=== PATIENT | female | born 1995 | race Caucasian/White ===

== ENCOUNTER 2017-03-25 22:38 | Emergency (ER) | payer OTHER ==
[2017-03-25 22:55] VITALS: BP 138/83; PULSE 72; TEMP 97.4; BMI 35.4
[2017-03-26 02:21] LABS: BASOPHIL 0.3 % (0-2.0); EOSINOPHIL 1.3 % (0-4.5); MCH 28.9 pg (25.7-33.7); NEUTROPHILS 55.2 % (42.8-82.8); PLATELET COUNT 222 K/MM3 (134-434); RDW 13.2 % (11.6-15.6); WHITE BLOOD COUNT 9.1 K/mm3 (4.0-10.0)
[2017-03-26 02:23] LABS: URINE APPEARANCE CLOUDY; URINE BILIRUBIN NEGATIVE (NEGATIVE); URINE BLOOD 2+ (NEGATIVE); URINE COLOR DKYELLOW; URINE GLUCOSE (UA) NEGATIVE (NEGATIVE); URINE KETONE 1+ (NEGATIVE); URINE NITRITE NEGATIVE (NEGATIVE)
[2017-03-26 02:24] LABS: URINE PROTEIN 1+ (NEGATIVE)
[2017-03-26 02:27] LABS: URINE MUCUS RARE; URINE RBC 128; URINE WBC 74
--- NOTE | 2017-03-26 02:28 | PDOC ---
History of Present Illness - General Chief Complaint: Shortness of Breath Stated Complaint: CHEST PAIN Time Seen by Provider: 03/26/17 01:26 Past History - Past Medical History Allergies/Adverse Reactions: Allergies Allergy/AdvReac Type Severity Reaction Status Date / Time shellfish derived Allergy Severe anaphylaxis Verified 02/14/15 17:18 cats Allergy Mild itchy eyes Uncoded 02/14/15 17:18 dogs Allergy Mild itchy eyes Uncoded 02/14/15 17:18 dust Allergy Mild itchy eyes Uncoded 02/14/15 17:18 Home Medications: Ambulatory Orders Levothyroxine [Synthroid -] 150 mcg PO DAILY 09/04/13 Insulin Pump Syringe, 3 ml 0 units SCJ PRN 02/03/15 Metformin HCl 500 mg PO HS 03/26/17 Norethindrone-E.estradiol-Iron [Lo Loestrin Fe 1-10 Tablet] 1 tab PO DAILY 03/26 Asthma: No Cancer: No Cardiac Disorders: Yes COPD: No Diabetes: Yes HTN: No Seizures: No Thyroid Disease: Yes (hypothyroid) - Surgical History Cardiac Surgery: Yes (ablation A fib) - Immunization History Immunization Up to Date: Yes - Suicide/Smoking/Psychosocial Hx Smoking Status: No Smoking History: Never smoked Have you smoked in the past 12 months: No Number of Cigarettes Smoked Daily: 0 Information on smoking cessation initiated: No Hx Alcohol Use: No Drug/Substance Use Hx: No Substance Use Type: None Hx Substance Use Treatment: No *Physical Exam - Vital Signs Last Vital Signs Temp Pulse Resp BP Pulse Ox 97.4 F L 72 22 138/83 100 03/25/17 22:46 03/25/17 22:46 03/25/17 22:46 03/25/17 22:46 03/25/17 22:46 ED Treatment Course - LABORATORY CBC & Chemistry Diagram: 03/26/17 02:16 03/26/17 02:16 - ADDITIONAL ORDERS Additional order review: Laboratory Results 03/26/17 02:16 Urine Color Dkyellow Urine Appearance Cloudy Urine pH 6.0 Ur Specific [place] 1.029 Urine Protein 1+ H Urine Glucose (UA) Negative Urine Ketones 1+ H Urine Blood 2+ H Urine Nitrite Negative Urine Bilirubin Negative Urine Urobilinogen 2.0 H 03/26/17 02:16 RBC 4.69 MCV 85.0 MCHC 34.0 RDW 13.2 MPV 11.0 Neutrophils % 55.2 Lymphocytes % 36.8 Monocytes % 6.4 Eosinophils % 1.3 Basophils % 0.3 *DC/Admit/Observation/Transfer - Referrals Referrals: Reymundo Welsh MD [Primary Care Provider] - - Patient Instructions - Post Discharge Activity
[2017-03-26 02:44] LABS: ALBUMIN 3.3 g/dl (3.4-5.0); ALK PHOS 65 U/L (45-117); ANION GAP 7 (8-16); BILIRUBIN,TOTAL 0.1 mg/dL (0.2-1.0); CALCIUM 8.1 mg/dL (8.5-10.1); CO2 27 mmol/L (21-32); CREATININE 0.7 mg/dL (0.55-1.02); GLUCOSE,RANDOM 120 mg/dL (74-106); SGOT/AST 13 U/L (15-37); SGPT/ALT 20 U/L (12-78); TOT PROT 6.5 g/dl (6.4-8.2)
[2017-03-26 03:04] LABS: CPK 96 IU/L (26-192); TROPONIN I < 0.02 ng/ml (0.00-0.05)
[2017-03-26] MEDS ORDERED: POTASSIUM CHLORIDE TABS 20 MEQ TABLET.ER (FP) PO ONE ×2 (03:18→03:28)
--- NOTE | 2017-03-26 04:15 | PDOC ---
History of Present Illness - General Chief Complaint: Shortness of Breath Stated Complaint: CHEST PAIN Time Seen by Provider: 03/26/17 01:26 History Source: Patient Exam Limitations: No Limitations - History of Present Illness Initial Comments: 03/26/17 04:14 21F with DM and hypothyroidism presents with inspiratory chest pain and shortness of breath since yesterday morning (thursday am) Reports a 3h road trip 3 days ago, and 1 episode of vomiting on Thursday night. Is on insulin pump and Metformin but stopped metformin the last 3 days due to low blood sugar upon waking up (30-40's) 03/26/17 06:41 Past History - Past Medical History Allergies/Adverse Reactions: Allergies Allergy/AdvReac Type Severity Reaction Status Date / Time shellfish derived Allergy Severe anaphylaxis Verified 02/14/15 17:18 cats Allergy Mild itchy eyes Uncoded 02/14/15 17:18 dogs Allergy Mild itchy eyes Uncoded 02/14/15 17:18 dust Allergy Mild itchy eyes Uncoded 02/14/15 17:18 Home Medications: Ambulatory Orders Levothyroxine [Synthroid -] 150 mcg PO DAILY 09/04/13 Insulin Pump Syringe, 3 ml 0 units SCJ PRN 02/03/15 Metformin HCl 500 mg PO HS 03/26/17 Norethindrone-E.estradiol-Iron [Lo Loestrin Fe 1-10 Tablet] 1 tab PO DAILY 03/26 Asthma: No Cancer: No Cardiac Disorders: Yes COPD: No Diabetes: Yes HTN: No Seizures: No Thyroid Disease: Yes (hypothyroid) - Surgical History Cardiac Surgery: Yes (ablation A fib) - Immunization History Immunization Up to Date: Yes - Suicide/Smoking/Psychosocial Hx Smoking Status: No Smoking History: Never smoked Have you smoked in the past 12 months: No Number of Cigarettes Smoked Daily: 0 Information on smoking cessation initiated: No Hx Alcohol Use: No Drug/Substance Use Hx: No Substance Use Type: None Hx Substance Use Treatment: No Review of Systems - Review of Systems Constitutional: No: Symptoms Reported HEENTM: No: Symptoms Reported Respiratory: Yes: See HPI Cardiac (ROS): No: Symptoms Reported ABD/GI: No: Symptoms Reported : No: Symptoms Reported Musculoskeletal: No: Symptoms Reported Integumentary: No: Symptoms Reported Neurological: No: Symptoms reported All Other Systems: Reviewed and Negative *Physical Exam - Vital Signs Last Vital Signs Temp Pulse Resp BP Pulse Ox 97.4 F L 72 22 138/83 100 03/25/17 22:46 03/25/17 22:46 03/25/17 22:46 03/25/17 22:46 03/25/17 22:46 - Physical Exam General Appearance: Yes: Nourished, Appropriately Dressed. No: Apparent Distress HEENT: positive: EOMI, MUKESH, Normal ENT Inspection Neck: positive: Trachea midline, Normal Thyroid. negative: Tender Respiratory/Chest: positive: Lungs Clear, Normal Breath Sounds. negative: Chest Tender, Respiratory Distress Cardiovascular: positive: Regular Rhythm, Regular Rate, S1, S2 Vascular Pulses: Dorsalis-Pedis (R): 2+, Doralis-Pedis (L): 2+ Gastrointestinal/Abdominal: positive: Normal Bowel Sounds, Flat, Soft. negative : Tender ED Treatment Course - LABORATORY CBC & Chemistry Diagram: 03/26/17 02:16 03/26/17 02:16 - ADDITIONAL ORDERS Additional order review: Laboratory Results 03/26/17 03/26/17 03/26/17 02:16 02:16 02:16 Sodium Potassium Chloride Carbon Dioxide Anion Gap BUN Creatinine Creat Clearance w eGFR Random Glucose Calcium Total Bilirubin AST ALT Alkaline Phosphatase Creatine Kinase 96 Troponin I < 0.02 Total Protein Albumin TSH 6.12 H D Urine Color Urine Appearance Urine pH Ur Specific [place] Urine Protein Urine Glucose (UA) Urine Ketones Urine Blood Urine Nitrite Urine Bilirubin Urine Urobilinogen Urine WBC (Auto) Urine RBC (Auto) Ur Epithelial Cells Urine Mucus Urine HCG, Qual Negative 03/26/17 03/26/17 02:16 02:16 Sodium 139 Potassium 3.4 L Chloride 105 Carbon Dioxide 27 Anion Gap 7 L BUN 8 Creatinine 0.7 Creat Clearance w eGFR > 60 Random Glucose 120 H Calcium 8.1 L Total Bilirubin 0.1 L D AST 13 L D ALT 20 Alkaline Phosphatase 65 D Creatine Kinase Troponin I Total Protein 6.5 Albumin 3.3 L TSH Urine Color Dkyellow Urine Appearance Cloudy Urine pH 6.0 Ur Specific [place] 1.029 Urine Protein 1+ H Urine Glucose (UA) Negative Urine Ketones 1+ H Urine Blood 2+ H Urine Nitrite Negative Urine Bilirubin Negative Urine Urobilinogen 2.0 H Urine WBC (Auto) 74 Urine RBC (Auto) 128 Ur Epithelial Cells Moderate Urine Mucus Rare Urine HCG, Qual 03/26/17 02:16 RBC 4.69 MCV 85.0 MCHC 34.0 RDW 13.2 MPV 11.0 Neutrophils % 55.2 Lymphocytes % 36.8 Monocytes % 6.4 Eosinophils % 1.3 Basophils % 0.3 - RADIOLOGY Radiology Studies Ordered: Category Date Time Status CHEST CTA [CT] Stat CT Scan 03/26/17 03:13 Ordered CHEST PA & LAT [RAD] Stat Radiology 03/26/17 02:28 Ordered - Medications Given in the ED: ED Medications Discontinued Medications Generic Name Dose Route Start Last Admin Trade Name Freq PRN Reason Stop Dose Admin Potassium Chloride 20 meq 03/26/17 03:18 03/26/17 03:30 K-Dur - PO 03/26/17 03:19 20 meq ONCE ONE Administration Medical Decision Making - Medical Decision Making 03/28/17 06:28 21F with atypical chest pain. Concerns for PE, Normal kidney function CTA chest ordered, Negative Negative cardiac enzymes Patient d/c with recommendation to follow up with PCp/reed or wind instrument repairer *DC/Admit/Observation/Transfer Diagnosis at time of Disposition: Atypical chest pain - Discharge Dispostion Disposition: HOME Admit: No - Referrals Referrals: Reymundo Welsh MD [Primary Care Provider] - - Patient Instructions Printed Discharge Instructions: DI for Costochondritis Additional Instructions: Follow up with your primary doctor or reed or wind instrument repairer today or tomorrow. Come back for any new, worsening or concerning symptoms of shortness of breath and chest pain - Post Discharge Activity
[2017-03-26] MEDS ORDERED: IBUPROFEN 600 MG TABLET (FP) PO ONE ×2 (06:41→06:48)
--- NOTE | 2017-03-26 10:53 | EKG ---
Test Reason : Blood Pressure : / mmHG Vent. Rate : 070 BPM Atrial Rate : 070 BPM P-R Int : 152 ms QRS Dur : 072 ms QT Int : 378 ms P-R-T Axes : 059 057 046 degrees QTc Int : 408 ms POOR DATA QUALITY, INTERPRETATION MAY BE ADVERSELY AFFECTED NORMAL SINUS RHYTHM WITH SINUS ARRHYTHMIA NONSPECIFIC T WAVE ABNORMALITY ABNORMAL ECG WHEN COMPARED WITH ECG OF 25-MAR-2017 22:45, NO SIGNIFICANT CHANGE WAS FOUND Confirmed by BHAKTI MARROQUIN MD ([id number]) on 03/26/2017 10:52:55 AM Referred By: Confirmed By:BHAKTI MARROQUIN MD
[2017-03-26 14:40] LABS: URINE LEUK ESTERASE 1+ (NEGATIVE)
--- NOTE | 2017-04-01 12:15 | EKG ---
Test Reason : Blood Pressure : / mmHG Vent. Rate : 074 BPM Atrial Rate : 074 BPM P-R Int : 140 ms QRS Dur : 078 ms QT Int : 400 ms P-R-T Axes : 056 039 024 degrees QTc Int : 444 ms NORMAL SINUS RHYTHM NORMAL ECG WHEN COMPARED WITH ECG OF 19-AUG-2012 19:33, NO SIGNIFICANT CHANGE WAS FOUND Confirmed by ANGEL LUIS SANZ MD ([id number]) on 04/01/2017 12:15:10 PM Referred By: Confirmed By:ANGEL LUIS SANZ MD
== END 2017-03-26 07:16 | disposition home or self-care (01) ==
LOC: JER 22:38
DX: R07.89 Other chest pain (principal); E10.8 Type 1 diabetes mellitus with unspecified complications; Z79.4 Long term (current) use of insulin; Z96.41 Presence of insulin pump (external) (internal); E03.9 Hypothyroidism, unspecified; E87.6 Hypokalemia
CPT/HCPCS: 36415; 71275-TC; 80053; 81003; 81015; 82550; 84443; 84484; 84703; 85025; 93005; 93010; 99283-25

== ENCOUNTER 2017-06-17 21:46 | Emergency (ER) | payer OTHER ==
[2017-06-17] MEDS ORDERED: morphine CARPU-JECT 2 MG/1 ML DISP.SYRIN IVPUSH ONE (21:58)
[2017-06-17 21:59] VITALS: BMI 35.3
--- NOTE | 2017-06-17 22:04 | PDOC ---
Rapid Medical Evaluation Time Seen by Provider: 06/17/17 21:52 Medical Evaluation: Allergies Allergy/AdvReac Type Severity Reaction Status Date / Time shellfish derived Allergy Severe anaphylaxis Verified 02/14/15 17:18 cats Allergy Mild itchy eyes Uncoded 02/14/15 17:18 dogs Allergy Mild itchy eyes Uncoded 02/14/15 17:18 dust Allergy Mild itchy eyes Uncoded 02/14/15 17:18 06/17/17 21:52 I have performed a brief in-person evaluation of this patient. The patient presents with a chief complaint of: sudden onset severe L pelvic pain x 1 hr, hx DM, no vaginal bleeding, denies , 06/07 LMP, , last sexual activity one week ago, last STD test march was negative, mom has history of fibroids, Dr. Welsh told her today that she has sign of PCOS Pertinent physical exam findings: patient in distress s/t pain I have ordered the following: CBC, CMP, serum preg, TVUS, T&S, UA, UCx, morphine The patient will proceed to the ED for further evaluation. Discharge Disposition - Diagnosis Pelvic pain - Referrals - Patient Instructions - Post Discharge Activity
--- NOTE | 2017-06-17 22:17 | PDOC ---
History of Present Illness - General Chief Complaint: Pain, Acute Stated Complaint: PAIN, ACUTE Time Seen by Provider: 06/17/17 21:52 - History of Present Illness Initial Comments: 21 year old with PMH of DMTI (insulin pump in place) and caesarian section x1 presenting with sudden onset severe L pelvic pain x 1 hr. Only complains of LLQ pain and denies fevers, chills, SOB, nausea, vomiting, diarrhea, chest pain , vaginal bleeding, recent . Her LMP was 06/07. Her last sexual activity was one week prior and her last STD test in March was negative. She was sent from Dr. Welsh's (PCP) office today because of concern for PCOS. 06/17/17 22:18 Past History - Past Medical History Allergies/Adverse Reactions: Allergies Allergy/AdvReac Type Severity Reaction Status Date / Time shellfish derived Allergy Severe anaphylaxis Verified 06/17/17 21:56 cats Allergy Mild itchy eyes Uncoded 02/14/15 17:18 dogs Allergy Mild itchy eyes Uncoded 02/14/15 17:18 dust Allergy Mild itchy eyes Uncoded 02/14/15 17:18 Home Medications: Ambulatory Orders Levothyroxine [Synthroid -] 150 mcg PO DAILY 09/04/13 Insulin Pump Syringe, 3 ml 0 units SCJ PRN 02/03/15 Metformin HCl 500 mg PO HS 03/26/17 Norethindrone-E.estradiol-Iron [Lo Loestrin Fe 1-10 Tablet] 1 tab PO DAILY 03/26 Dicyclomine HCl [Bentyl -] 20 mg PO Q6H PRN #20 tablet 06/18/17 Ibuprofen [Motrin -] 600 mg PO TID PRN #20 tablet 06/18/17 Asthma: No Cancer: No Cardiac Disorders: Yes COPD: No Diabetes: Yes HTN: No Seizures: No Thyroid Disease: Yes (hypothyroid) - Surgical History Cardiac Surgery: Yes (ablation A fib) - Immunization History Immunization Up to Date: Yes - Suicide/Smoking/Psychosocial Hx Smoking Status: No Smoking History: Never smoked Have you smoked in the past 12 months: No Number of Cigarettes Smoked Daily: 0 Information on smoking cessation initiated: No Hx Alcohol Use: No Drug/Substance Use Hx: No Substance Use Type: None Hx Substance Use Treatment: No Review of Systems - Review of Systems Constitutional: No: Chills, Diaphoresis, Fever HEENTM: No: Blurred Vision Respiratory: No: Cough, Orthopnea, Shortness of Breath, Wheezing Cardiac (ROS): No: Chest Pain, Irregular Heart Rate ABD/GI: No: Diarrhea, Nausea, Vomiting : No: Discharge, Hematuria Musculoskeletal: No: Back Pain, Gout, Joint Pain Integumentary: No: Lesions, Lumps, Rash Neurological: No: Headache, Numbness, Paresthesia Psychiatric: No: Anxiety, Depression *Physical Exam - Vital Signs Last Vital Signs Temp Pulse Resp BP Pulse Ox 98.2 F 96 H 18 157/80 99 06/17/17 21:56 06/17/17 21:56 06/17/17 21:56 06/17/17 21:56 06/17/17 21:56 - Physical Exam General Appearance: Yes: Nourished, Appropriately Dressed. No: Apparent Distress HEENT: positive: EOMI, MUKESH, Normal ENT Inspection, Normal Voice Neck: positive: Trachea midline, Normal Thyroid, Supple. negative: Tender, Rigid Respiratory/Chest: positive: Lungs Clear, Normal Breath Sounds. negative: Chest Tender, Respiratory Distress, Accessory Muscle Use Cardiovascular: positive: Regular Rhythm, Regular Rate Gastrointestinal/Abdominal: positive: Normal Bowel Sounds, Tender (LLQ tenderness without rebound or guarding.), Flat, Soft Extremity: positive: Normal Capillary Refill, Normal Inspection, Normal Range of Motion. negative: Tender Integumentary: positive: Normal Color, Dry, Warm Neurologic: positive: Fully Oriented, Alert, Normal Mood/Affect, Normal Response , Motor Strength 5/5 ED Treatment Course - LABORATORY CBC & Chemistry Diagram: 06/17/17 23:00 06/17/17 23:00 Medical Decision Making - Medical Decision Making 21 year old female with sudden onset abdominal pain with labs only significant for slightly elevated WBC and glucose of 381. TVUS and CT abdomen/ pelvis only significant for small left ovarian cyst. Patient's pain was improved after 2 of morphine and 30 of Toradol. Sent home with User Support Analyst follow up and motrin + bentyl. She corrected for her blood glucose with her pump. 06/18/17 02:28 *DC/Admit/Observation/Transfer Diagnosis at time of Disposition: Pelvic pain Ovarian cyst Qualifiers: Laterality: left Qualified Code(s): N83.202 - Unspecified ovarian cyst, left side - Discharge Dispostion Disposition: HOME Condition at time of disposition: Improved Admit: No - Prescriptions Prescriptions: Dicyclomine HCl [Bentyl -] 20 mg PO Q6H PRN #20 tablet PRN Reason: Abdominal pain Ibuprofen [Motrin -] 600 mg PO TID PRN #20 tablet PRN Reason: abdominal pain - Referrals Referrals: Reymundo Welsh MD [Primary Care Provider] - Jennifer Henning MD [Staff Physician] - - Patient Instructions Printed Discharge Instructions: DI for Ovarian Cyst Additional Instructions: You have an ovarian cyst on the left side that is 2.1 CM in size. Please follow up with your ObyGyn doctor and Dr. Emanuel. Your abdominal CT did not show anything concerning so this is likely all caused by your cyst. Please follow up with Dr. Emanuel first. - Post Discharge Activity
[2017-06-17] MEDS ORDERED: MORPHINE SULFATE 10 MG/1 ML *VIAL ONE (22:43)
--- NOTE | 2017-06-17 22:43 | PDOC ---
Attending Attestation - HPI HPI: 06/18/17 01:18 The patient is a 21 year old female with a significant PMH of diabetes who presents to the emergency department with an acute onset of LLQ and left pelvic pain beginning at approximately 9PM. She reports being referred by Dr. Welsh for an outpatient pelvic US but notes her pain was so severe she decided to come to the ED. She denies any vaginal bleeding. LMP: 06/07/2017 Allergies: NKDA PCP/Outpatient Coding Specialist: Dr. Welsh - Physicial Exam PE: 06/18/17 01:18 GENERAL: Well developed, well nourished. Awake and alert. No acute distress. HEENT: Normocephalic, atraumatic. PERRLA, EOMI. No conjunctival pallor. Sclera are non- icteric. Moist mucous membranes. Oropharynx is clear. NECK: Supple. Full ROM. No JVD. Carotid pulses 2+ and symmetric, without bruits. No thyromegaly. No lymphadenopathy. CARDIOVASCULAR: Regular rate and rhythm. No murmurs, rubs, or gallops. Distal pulses are 2+ and symmetric. PULMONARY: No evidence of respiratory distress. Lungs clear to auscultation bilaterally. No wheezing, rales or rhonchi. ABDOMINAL: (+) LLQ moderately tender. No rebound or guarding. Non-distended. No organomegaly. Normoactive bowel sounds. MUSCULOSKELETAL Normal range of motion at all joints. No bony deformities or tenderness. No CVA tenderness. EXTREMITIES: No cyanosis. No clubbing. No edema. No calf tenderness. SKIN: Warm and dry. Normal capillary refill. No rashes. No jaundice. NEUROLOGICAL: Alert, awake, appropriate. Cranial nerves 2-12 intact. No deficits to light touch and temperature in face, upper extremities and lower extremities. No motor deficits in the in face, upper extremities and lower extremities. Normoreflexic in the upper and lower extremities. Normal speech. Toes are downgoing bilaterally. Gait is normal without ataxia. PSYCHIATRIC: Cooperative. Good eye contact. Appropriate mood and affect. <Faisal Hagen - Last Filed: 06/18/17 01:18> - Resident Resident Name: Victoriano Andrade - ED Attending Attestation I have performed the following: I have examined & evaluated the patient, The case was reviewed & discussed with the resident, I agree w/resident's findings & plan, Exceptions are as noted - HPI HPI: 06/18/17 00:41 Pt with left lower quadrant pain of sudden onset. - Medical Decision Making 06/18/17 19:18 Pt treated and released <Elliot Wu - Last Filed: 06/18/17 19:18>
[2017-06-17 23:10] LABS: BASO % 0.3 % (0-2.0); EOS % 1.4 % (0-4.5); HEMATOCRIT 40.1 % (32.4-45.2); HEMOGLOBIN 13.4 GM/dL (10.7-15.3); MCH 28.4 pg (25.7-33.7); MCHC 33.3 g/dl (32.0-36.0); MEAN CELL VOLUME 85.3 fl (80-96); MEAN PLT VOLUME 11.3 fl (7.5-11.1); MONO % 4.6 % (3.8-10.2); NEUT % 60.7 % (42.8-82.8); PLATELET COUNT 212 K/MM3 (134-434); RDW 13.4 % (11.6-15.6)
[2017-06-17 23:13] LABS: URINE APPEARANCE CLEAR; URINE BILIRUBIN NEGATIVE (NEGATIVE); URINE BLOOD NEGATIVE (NEGATIVE); URINE COLOR STRAW; URINE GLUCOSE (UA) 3+ (NEGATIVE); URINE KETONE TRACE (NEGATIVE); URINE LEUK ESTERASE TRACE (NEGATIVE); URINE NITRITE NEGATIVE (NEGATIVE); URINE PROTEIN NEGATIVE (NEGATIVE); URINE UROBILINOGEN NEGATIVE mg/dL (0.2-1.0)
[2017-06-17 23:17] LABS: EPI CELLS RARE /HPF (FEW)
[2017-06-17 23:39] LABS: ALBUMIN 3.7 g/dl (3.4-5.0); ANION GAP 8 (8-16); BILIRUBIN,TOTAL 0.2 mg/dL (0.2-1.0); BLOOD UREA NITROGEN 8 mg/dL (7-18); CALCIUM 8.8 mg/dL (8.5-10.1); CHLORIDE 103 mmol/L (98-107); CO2 27 mmol/L (21-32); CREATININE 0.8 mg/dL (0.55-1.02); POTASSIUM 4.4 mmol/L (3.5-5.1); SGOT/AST 12 U/L (15-37); SGPT/ALT 20 U/L (12-78); SODIUM 138 mmol/L (136-145); TOT PROT 6.7 g/dl (6.4-8.2)
[2017-06-17 23:40] LABS: ALK PHOS 82 U/L (45-117)
[2017-06-17 23:43] LABS: GLUCOSE,RANDOM 381 mg/dL (74-106)
[2017-06-18 00:31] LABS: INR 1.04 (0.82-1.09); PROTHROMBIN TIME (PATIENT) 11.8 SEC (9.98-11.88)
[2017-06-18] MEDS ORDERED: KETOROLAC TROMETHAMINE 30 MG/1 ML VIAL IVPUSH ONE (01:15)
[2017-06-18] MEDS ORDERED: KETOROLAC TROMETHAMINE 30 MG/1 ML VIAL ONE (02:08)
[2017-06-18 02:14] VITALS: BP 108/69; PULSE 64; TEMP 97.7
== END 2017-06-18 02:46 | disposition home or self-care (01) ==
LOC: JER 21:46
PROC: 3E033NZ Introduction of Analgesics, Hypnotics, Sedatives into Peripheral Vein, Percutaneous Approach (ICD-10-PCS; principal; 2017-06-17)
PROC: 3E0333Z Introduction of Anti-inflammatory into Peripheral Vein, Percutaneous Approach (ICD-10-PCS; 2017-06-17)
DX: N83.202 Unspecified ovarian cyst, left side (principal); E10.9 Type 1 diabetes mellitus without complications; Z79.4 Long term (current) use of insulin; Z96.41 Presence of insulin pump (external) (internal); E03.9 Hypothyroidism, unspecified
CPT/HCPCS: 36415; 74177-TC; 76830-TC; 80053; 81003; 81015; 83690; 84703; 85025; 85610; 86850; 86900; 86901; 87086; 87491; 87591; 99282-25

== ENCOUNTER 2018-11-08 12:10 | Inpatient (IN) | payer OTHER ==
[2018-11-08] MEDS ORDERED: NIFEdipine 10 MG CAPSULE (FP) PO ONE (12:44)
[2018-11-08] MEDS ORDERED: BETAMET ACET/BETAMET NA PH 30 MG/5 ML VIAL IM SCH (13:00)
[2018-11-08] MEDS ORDERED: LACTATED RINGERS SOLUTION 1,000 ML IV SCH ×3 (13:30→15:45)
[2018-11-08] MEDS ORDERED: NIFEdipine 10 MG CAPSULE (FP) PO SCH ×3 (13:30→18:00)
[2018-11-08] MEDS ORDERED: TERBUTALINE SULFATE 1 MG/1 ML VIAL SQ ONE (15:00)
--- NOTE | 2018-11-08 15:03 | HP ---
Past Medical History - Admission History of Present Illness: 22 y/o p1 female with SIUP at 34.1 weeks here with complaints of contractions. Pt has h/o delivery, was done at 35 weeks, had PPROM. Pt states pain was every 10 minutes since early this a.m. Since arrival to L&D pt has recieved 1 dose betamethasone and 30mg Procardia PO. Contractions have spaced out and are less painful per patient. Cervix was closed upon arrival around 1230pm today. no LOF/VB. +FM. Pt with IDDM, has insulin pump in place. History Source: Patient, Medical Record Limitations to Obtaining History: No Limitations - Past Medical History Cardiovascular: Yes: AFIB Pulmonary: No: Asthma, COPD Gastrointestinal: No: GERD, Hemorrhoids Hepatobiliary: No: Hepatitis B, Hepatitis C Renal/: No: UTI Reproductive: No: Fibroids, Polycystic Ovary Syndrome ...: 2 ...Para: 1 ...Term: 0 ...: 1 ...Spon : 0 ...Induced : 0 ...LMP: 03/14/18 ... Weeks Gestation by Dates: 34.1 ...EDC by Dates: 12/19/18 Infectious Disease: No: HIV, MRSA, STD's Psych: No: Bipolar, Depression, Panic Endocrine: Yes: Diabetes Mellitus, Hypothyroidism - Past Surgical History Past Surgical History: Yes: Hx Myomectomy: No Hx Transabdominal Cerclage: No - Smoking History Smoking history: Never smoked Have you smoked in the past 12 months: No Aproximately how many cigarettes per day: 0 - Alcohol/Substance Use Hx Alcohol Use: No History of Substance Use: reports: None - Social History Usual Living Arrangement: Yes: With Spouse ADL: Independent History of Recent Travel: No Home Medications - Allergies Allergies/Adverse Reactions: Allergies Allergy/AdvReac Type Severity Reaction Status Date / Time shellfish derived Allergy Unknown anaphylaxis Verified 11/08/18 12:52 cats Allergy Mild itchy eyes Uncoded 10/28/18 11:31 dogs Allergy Mild itchy eyes Uncoded 10/28/18 11:31 dust Allergy Mild itchy eyes Uncoded 10/28/18 11:31 - Home Medications Home Medications: Ambulatory Orders Levothyroxine [Synthroid -] 200 mcg PO DAILY 04/27/14 Insulin Pump Syringe, 3 ml 0 units SCJ PRN 02/03/15 Hydroxyprogesterone Caproate [Kelly] 250 mg IM WEEKLY 11/08/18 Vitamins (Sjr) - 1 tab PO DAILY 11/08/18 Physical Exam - Maternity Vital Signs: Vital Signs Temperature 98.1 F 11/08/18 12:39 Pulse Rate 93 H 11/08/18 14:05 Respiratory Rate 20 11/08/18 14:05 Blood Pressure 118/72 11/08/18 14:05 O2 Sat by Pulse Oximetry (%) Constitutional: Yes: Well Nourished, No Distress, Calm Eyes: Yes: Conjunctiva Clear, EOM Intact HENT: Yes: Normocephalic Neck: Yes: Supple Cardiovascular: Yes: Regular Rate and Rhythm Lungs: Clear to auscultation - Abdominal Exam/OB Fundal Height: 35 Number of Fetuses: Single Presentation: Vertex Contractions: Yes Regularity: Irritability Intensity: Mild/Mod Heart Rate (range): 150 Category: I Accelerations: Uniform Decelerations: None - Vaginal Exam/OB Vaginal Bleediing: No Dilatation (cm): 0 Effacement (%): 0 Amniotic Membrane Status: Intact Presentation: Vertex/Position - Physical Exam Psychiatric: Yes: Alert, Oriented Hemorrhage Risk Assessment - Risk Factors Medium Risk Factors: Yes: Prior , uterine surgery,or multiple laparotomies High Risk Factors: Yes: None Risk Score: 1 Risk Level: Medium Risk Problem List - Problems (1) contractions Code(s): O47.9 - FALSE LABOR, UNSPECIFIED Assessment/Plan 22 y/o with SIUP at 34.1 weeks, contractions, h/o PTD at 35 weeks due to PPROM, prior c section 1 dose of betamethasone given for lung maturity cervix remains closed, one dose procardia given at 1pm for tocolysis, continue Q6h will add in ampicillin for GBS unknown if ROM/begins to dilate will plan for c section tocolysis to get 2nd dose steroids DM per her glucose pump diabetic diet if stabilizes inpatient monitoring/care
[2018-11-08] MEDS ORDERED: AMPICILLIN - 2 GM in SODIUM CHLORIDE 100 ML IVPB ONE (15:09)
[2018-11-08] MEDS ORDERED: AMPICILLIN SODIUM 2 GM VIAL ONE (15:16)
[2018-11-08 15:41] VITALS: BMI 37.3
[2018-11-08 16:44] LABS: BASO % 0.3 % (0-2.0); EOS % 0.2 % (0-4.5); HEMATOCRIT 39.3 % (32.4-45.2); HEMOGLOBIN 13.1 GM/dL (10.7-15.3); LYMPH % 9.4 % (8-40); MCH 28.2 pg (25.7-33.7); MCHC 33.4 g/dl (32.0-36.0); MEAN CELL VOLUME 84.4 fl (80-96); MEAN PLT VOLUME 11.2 fl (7.5-11.1); MONO % 1.7 % (3.8-10.2); NEUT % 88.4 % (42.8-82.8); PLATELET COUNT 169 K/MM3 (134-434); RBC 4.65 M/mm3 (3.60-5.2); WHITE BLOOD COUNT 14.4 K/mm3 (4.0-10.0)
[2018-11-08 17:13] LABS: BLOOD UREA NITROGEN 4.4 mg/dL (7-18); CALCIUM 8.5 mg/dL (8.5-10.1); CREATININE 0.7 mg/dL (0.55-1.3)
[2018-11-08 17:40] LABS: INR 0.95 (0.83-1.09); PROTHROMBIN TIME (PATIENT) 11.2 SEC (9.7-13.0)
[2018-11-08 17:43] LABS: ACTIVATED PTT 28.3 SECONDS (25.2-36.5)
[2018-11-08] MEDS ORDERED: AMPICILLIN SODIUM 1 GM VIAL ONE (18:23)
[2018-11-08 18:43] LABS: URINE APPEARANCE CLEAR; URINE BILIRUBIN NEGATIVE (NEGATIVE); URINE COLOR YELLOW; URINE GLUCOSE (UA) NEGATIVE (NEGATIVE); URINE KETONE 1+ (NEGATIVE); URINE LEUK ESTERASE NEGATIVE (NEGATIVE); URINE NITRITE NEGATIVE (NEGATIVE); URINE PROTEIN NEGATIVE (NEGATIVE); URINE UROBILINOGEN 0.2 mg/dL (0.2-1.0)
--- NOTE | 2018-11-08 19:02 | PN ---
Ante-Partal Exam - Subjective Subjective: Pt states her contractions are more painful. Vital Signs: Vital Signs Temperature 98.6 F 11/08/18 18:00 Pulse Rate 86 11/08/18 18:00 Respiratory Rate 18 11/08/18 18:00 Blood Pressure 121/70 11/08/18 18:00 O2 Sat by Pulse Oximetry (%) Bleeding: No Headache: No Visual changes: No Right upper quadrant pain: No Pain (scale 1-10): 9 - Contractions Contractions: Yes Regularity: Regular Intensity: Moderate - Exam during Labor Heart Rate: 150 Variability: Moderate Category: I Monitor Accelerations: Present Monitor Decelerations: None Amniotic Membrane Status: Intact Presentation: Vertex - Assessment/Plan Assessment/Plan: Pt in active PTL at this time. Breaking through [facility]. Plan for repeat c section Nursery/anesthesia/nursing staff aware. consents signed
[2018-11-08] MEDS ORDERED: AMPICILLIN - 1 GM in SODIUM CHLORIDE 100 ML IVPB SCH (19:10)
[2018-11-08] MEDS ORDERED: oxyCODONE HCL 5 MG TABLET PO PRN (19:23)
[2018-11-08] MEDS ORDERED: METHYLERGONOVINE MALEATE 0.2 MG/1 ML AMP IM PRN (19:23)
[2018-11-08] MEDS ORDERED: OXYTOCIN 20 UNITS in 0.9% NS 20 UNIT/1,000 ML INFUS.BAG IV SCH (19:30)
[2018-11-08] MEDS ORDERED: CITRIC ACID/SODIUM CITRATE 30 ML UNIT-DOSE CUP PO ONE (19:34)
--- NOTE | 2018-11-08 19:40 | HP ---
Past Medical History - Past Medical History Cardiovascular: Yes: AFIB Pulmonary: No: Asthma, COPD Gastrointestinal: No: GERD, Hemorrhoids Hepatobiliary: No: Hepatitis B, Hepatitis C Renal/: No: UTI ...: 2 ...Para: 1 ...Term: 0 ...: 1 ...Spon : 0 ...Induced : 0 ...Multiple Gestation: 0 ...LMP: 03/14/18 ... Weeks Gestation by Dates: 34.1 ...EDC by Dates: 12/19/18 Infectious Disease: No: HIV, MRSA, STD's Psych: No: Bipolar, Depression, Panic Endocrine: Yes: Diabetes Mellitus, Hypothyroidism - Past Surgical History Past Surgical History: Yes: - Smoking History Smoking history: Never smoked Have you smoked in the past 12 months: No Aproximately how many cigarettes per day: 0 - Alcohol/Substance Use Hx Alcohol Use: No History of Substance Use: reports: None - Social History ADL: Independent History of Recent Travel: No Home Medications - Allergies Allergies/Adverse Reactions: Allergies Allergy/AdvReac Type Severity Reaction Status Date / Time shellfish derived Allergy Unknown anaphylaxis Verified 11/08/18 12:52 cats Allergy Mild itchy eyes Uncoded 10/28/18 11:31 dogs Allergy Mild itchy eyes Uncoded 10/28/18 11:31 dust Allergy Mild itchy eyes Uncoded 10/28/18 11:31 - Home Medications Home Medications: Ambulatory Orders Levothyroxine [Synthroid -] 200 mcg PO DAILY 09/04/13 Insulin Pump Syringe, 3 ml 0 units SCJ PRN 02/03/15 Hydroxyprogesterone Caproate [Kelly] 250 mg IM WEEKLY 11/08/18 Vitamins (Sjr) - 1 tab PO DAILY 11/08/18 Physical Exam - Maternity Vital Signs: Vital Signs Temperature 98.6 F 11/08/18 18:00 Pulse Rate 86 11/08/18 18:00 Respiratory Rate 18 11/08/18 18:00 Blood Pressure 121/70 11/08/18 18:00 O2 Sat by Pulse Oximetry (%) - Labs Lab Results: CBC, BMP 11/08/18 16:28 11/08/18 16:28 Problem List - Problems (1) contractions Code(s): O47.9 - FALSE LABOR, UNSPECIFIED
[2018-11-08] MEDS ORDERED: INSULIN PUMP SCJ SCH (19:45)
[2018-11-08] MEDS ORDERED: ELECTROLYTE-148 SOLN 1,000 ML IV SCH ×2 (19:45)
[2018-11-08] MEDS ORDERED: morphine SULFATE/PF 0.5 MG/ML (2cc Syringe - QUVA) ONE (20:16)
[2018-11-08] MEDS ORDERED: ceFAZolin SODIUM 1 GM VIAL ONE ×2 (21:18→21:19)
[2018-11-08] MEDS ORDERED: OXYTOCIN 10 UNITS/ML VIAL ONE ×4 (21:19)
--- NOTE | 2018-11-08 21:20 | OP ---
Operative Note - Note: Operative Date: 11/08/18 Pre-Operative Diagnosis: IDDM, IUP at 34.1 weeks, labor Operation: repeat low transverse section Findings: normal b/l tubes and ovaries live male Post-Operative Diagnosis: Same as Pre-op Surgeon: Nia Beckwith Railway Track Plant Operator: Andrade Moreno Anesthesiologist/AUTOMATIC PAINT SPRAYER OPERATOR: Eric Charlton Anesthesia: Spinal Specimens Removed: placenta Estimated Blood Loss (mls): 600 Operative Report Dictated: Yes
[2018-11-08] MEDS ORDERED: ONDANSETRON 4 MG/2 ML VIAL IVPUSH PRN (21:23)
[2018-11-08] MEDS ORDERED: IBUPROFEN 800 MG/8 ML IJ IVPB PRN (21:43)
--- NOTE | 2018-11-08 22:37 | OP ---
DATE OF OPERATION: 11/08/2018 PREOPERATIVE DIAGNOSES: labor, single intrauterine at 34.1 weeks' gestation, prior section, declined trial of labor after , and insulin-dependent diabetes. PROCEDURE: Repeat low transverse section. SURGEON: Nia Beckwith DO MERCHANDISE PLANNING MANAGER: ULYSSES Maire ANESTHESIA: Spinal by Eric Charlton MD. ESTIMATED BLOOD LOSS: 600 mL. COMPLICATIONS: None. COUNT: Sponge, needle, and instrument count correct. DISPOSITION: Stable to PACU. BRIEF HISTORY AND PROCEDURE: Patient is a 22-year-old female who had been admitted to [facility] with complaints of contractions. The patient received a dose of betamethasone, and there was attempt at tocolysis in order to achieve a second dose of betamethasone. However, the patient began to have worsening contractions throughout the day. On the evening of November 08, 2018, the plan was made to proceed with a repeat section. Consents for the procedure were signed. She was then taken back to the operating room, given spinal anesthesia, and placed in the dorsal supine position. A Wong catheter was placed under sterile conditions, and a hard timeout was performed. A Pfannenstiel skin incision was created in the skin with a scalpel and carried to the underlying layer of rectus fascia sharply. The fascia was incised on either side of midline sharply, and the fascial incision was carried in a superolateral direction sharply. The fascia was tented upward and dissected off the underlying layer of rectus muscle sharply. The musculature was identified and from the midline. The peritoneum was identified and entered bluntly, and the bladder blade was inserted to allow for adequate room for delivery. A transverse incision was created in the lower uterine segment, which was extended in superolateral direction bluntly. The was then delivered from the left occiput transverse position. The anterior and posterior shoulders delivered with ease along with the remainder of the . The cord was clamped twice and cut in between. The was taken over to the warmer to be assessed by the neonatology staff who were present for the entire delivery. This was done after 1 minute of delayed cord clamping. The placenta was delivered with a 3-vessel cord and was intact. The uterus was exteriorized from the abdomen, inspected, and cleared of all amniotic membrane and blood clot with a dry lap sponge. The hysterotomy was reapproximated in a double-layer closure using 1 Vicryl in a running, locked fashion. Second layer using 0 Biosyn in a running, imbricating fashion. Excellent hemostasis was achieved. Bilateral tubes and ovaries were noted to be normal. The posterior cul-de-sac was suctioned of any blood clot and fluid. The uterus was placed back in the abdomen. Bilateral gutters were inspected and cleared of all blood clot and debris. The peritoneum was reapproximated using 2-0 chromic in a running fashion. The musculature was reapproximated in 2 interrupted sutures using 0 Biosyn. The fascia was reapproximated using 1 Vicryl in a running fashion. The subcutaneous tissue was irrigated and reapproximated in a running fashion using a 1 Vicryl suture, and the skin was reapproximated using 3-0 Vicryl in a subcuticular fashion. Steri-Strips were applied. The patient tolerated the procedure well, is recovering in stable condition in the PACU after the procedure. Sponge, needle, and instrument count was reported to be correct. NIA BECKWITH DO /[id number]
[2018-11-09] MEDS ORDERED: NIFEdipine 10 MG CAPSULE (FP) PO SCH
[2018-11-09] MEDS: LEVOTHYROXINE NA 200 MCG TABLET PO SCH (06:39)
[2018-11-09 07:46] LABS: RBC 4.27 M/mm3 (3.60-5.2); WHITE BLOOD COUNT 19.2 K/mm3 (4.0-10.0)
[2018-11-09 07:47] LABS: BASO % 0.1 % (0-2.0); EOS % 0.1 % (0-4.5); LYMPH % 11.6 % (8-40); MCHC 33.3 g/dl (32.0-36.0); MEAN CELL VOLUME 84.2 fl (80-96); MEAN PLT VOLUME 11.1 fl (7.5-11.1); MONO % 5.4 % (3.8-10.2); NEUT % 82.8 % (42.8-82.8); PLATELET COUNT 146 K/MM3 (134-434); RDW 13.3 % (11.6-15.6)
--- NOTE | 2018-11-09 09:26 | PN ---
Post Progress Note - Subjective Subjective: 22 yo Para 1, status post repeat Low Transverse , seen and evaluated. Doing well. Post Day: 1 Type of Delivery: Repeat C/S Vital Signs: Vital Signs Temperature 98.4 F 11/09/18 05:00 Pulse Rate 61 11/09/18 05:00 Respiratory Rate 18 11/09/18 08:00 Blood Pressure 117/66 11/09/18 05:00 O2 Sat by Pulse Oximetry (%) 95 11/09/18 01:00 Breast Exam: Yes: Soft Uterus: Yes: Fundus Firm Abdomen/GI: Yes: Abdomen soft, Tolerating PO Lochia: Yes: Rubra Lochia, amount: Small Extremities: Yes: Calves non-tender Perineum: Yes: Intact Activity: Ambulating - Labs Labs: CBC WBC 19.2 K/mm3 (4.0-10.0) H 11/09/18 06:57 RBC 4.27 M/mm3 (3.60-5.2) 11/09/18 06:57 Hgb 12.0 GM/dL (10.7-15.3) 11/09/18 06:57 Hct 36.0 % (32.4-45.2) 11/09/18 06:57 MCV 84.2 fl (80-96) 11/09/18 06:57 MCH 28.0 pg (25.7-33.7) 11/09/18 06:57 MCHC 33.3 g/dl (32.0-36.0) 11/09/18 06:57 RDW 13.3 % (11.6-15.6) 11/09/18 06:57 Plt Count 146 K/MM3 (134-434) 11/09/18 06:57 MPV 11.1 fl (7.5-11.1) 11/09/18 06:57 Absolute Neuts (auto) 15.9 K/mm3 (1.5-8.0) H 11/09/18 06:57 Neutrophils % 82.8 % (42.8-82.8) 11/09/18 06:57 Lymphocytes % 11.6 % (8-40) D 11/09/18 06:57 Monocytes % 5.4 % (3.8-10.2) D 11/09/18 06:57 Eosinophils % 0.1 % (0-4.5) 11/09/18 06:57 Basophils % 0.1 % (0-2.0) 11/09/18 06:57 Nucleated RBC % 0 % (0-0) 11/09/18 06:57 Problem List - Problems (1) Status post repeat low transverse section Code(s): Z98.891 - HISTORY OF UTERINE SCAR FROM PREVIOUS SURGERY Assessment/Plan Status post repeat Low transverse . Ambulation Analgesia as needed Continue routine post op care
[2018-11-09] MEDS: PRENATAL VITAMINS W/ FOLIC ACID TABLET (FP) PO SCH (10:18)
[2018-11-09] MEDS ORDERED: BETAMET ACET/BETAMET NA PH 30 MG/5 ML VIAL IM ONE (13:00)
[2018-11-09] MEDS ORDERED: BISACODYL 10 MG SUPP.RECT RC PRN (19:23)
--- NOTE | 2018-11-09 22:41 | CONSULT ---
Consult Consult Specialty:: ENDOCRINE Referred by:: ANABELL DEL REAL D.O. Reason for Consultation:: TYPE 1 IDDM, HYPOTHYROIDISM - History of Present Illness Chief Complaint: POST OP CSECTION History of Present Illness: 22 y/o FEMALE,TYPE 1 IDDM,HYPOTHYROIDISM.POST OP C SECTION DELIVERY, SP 35 weeks GESTATION, had PPROM. Since arrival to L&D pt recieved 1 dose betamethasone and UNDERWENT CSCECTION,POST OP FEELS WELL . BABY BOY HAS HAD HYPOGLYCEMIA,REQUIRING IV FLUIDS,SHE ISWELL,EUGLYCEMIA ON INSULIN PUMP,CGMS CLOSED LOOP SYSTEM MEDTRONIC - Past Medical History Cardio/Vascular: Yes: AFIB Pulmonary: No: Asthma, COPD Gastrointestinal: No: GERD, Hemorrhoids Hepatobiliary: No: Hepatitis B, Hepatitis C Renal/: No: UTI ...LMP: 03/20/14 Infectious Disease: No: HIV, MRSA, STD's Psych: No: Bipolar, Depression, Panic Endocrine: Yes: Diabetes Mellitus, Hypothyroidism - Past Surgical History Past Surgical History: Yes: - Alcohol/Substance Use Hx Alcohol Use: No History of Substance Use: reports: None - Smoking History Smoking history: Never smoked Have you smoked in the past 12 months: No Aproximately how many cigarettes per day: 0 - Social History ADL: Independent History of Recent Travel: No Home Medications - Allergies Allergies/Adverse Reactions: Allergies Allergy/AdvReac Type Severity Reaction Status Date / Time shellfish derived Allergy Unknown anaphylaxis Verified 11/08/18 12:52 cats Allergy Mild itchy eyes Uncoded 10/28/18 11:31 dogs Allergy Mild itchy eyes Uncoded 10/28/18 11:31 dust Allergy Mild itchy eyes Uncoded 10/28/18 11:31 - Home Medications Home Medications: Ambulatory Orders Levothyroxine [Synthroid -] 200 mcg PO DAILY 09/04/13 Insulin Pump Syringe, 3 ml 0 units SCJ PRN 02/03/15 Hydroxyprogesterone Caproate [[place]] 250 mg IM WEEKLY 11/08/18 Vitamins (Sjr) - 1 tab PO DAILY 11/08/18 Review of Systems - Review of Systems Constitutional: reports: No Symptoms Eyes: reports: No Symptoms HENT: reports: No Symptoms Neck: reports: No Symptoms Cardiovascular: reports: No Symptoms Respiratory: reports: No Symptoms Gastrointestinal: reports: No Symptoms Genitourinary: reports: No Symptoms Breasts: reports: No Symptoms Reported Musculoskeletal: reports: No Symptoms Endocrine: reports: No Symptoms Physical Exam Vital Signs: Vital Signs Temperature 98.4 F 11/09/18 18:00 Pulse Rate 82 11/09/18 18:00 Respiratory Rate 18 11/09/18 20:00 Blood Pressure 117/63 11/09/18 18:00 O2 Sat by Pulse Oximetry (%) 95 11/09/18 01:00 Constitutional: Yes: Calm Eyes: Yes: EOM Intact HENT: Yes: Normocephalic Neck: Yes: Thyromegaly Cardiovascular: Yes: Regular Rate and Rhythm Respiratory: Yes: CTA Bilaterally Gastrointestinal: Yes: Normal Bowel Sounds ...Rectal Exam: Yes: Deferred Renal/: Yes: WNL Breast(s): Yes: Gynecomastia Musculoskeletal: Yes: WNL Edema: No Wound/Incision: Yes: Dressing Dry and Intact Neurological: Yes: Alert, Oriented Labs: CBC, BMP 11/09/18 06:57 11/08/18 16:28 Problem List - Problems (1) Status post repeat low transverse section Code(s): Z98.891 - HISTORY OF UTERINE SCAR FROM PREVIOUS SURGERY (2) Abdominal pain Code(s): R10.9 - UNSPECIFIED ABDOMINAL PAIN (3) Diabetes mellitus, insulin dependent (IDDM), uncontrolled Code(s): E10.65 - TYPE 1 DIABETES MELLITUS WITH HYPERGLYCEMIA (4) Hypoglycemia Code(s): E16.2 - HYPOGLYCEMIA, UNSPECIFIED (5) Insulin dependent diabetes mellitus type IA Code(s): E10.9 - TYPE 1 DIABETES MELLITUS WITHOUT COMPLICATIONS Assessment/Plan Current Active Problems IDDM TYPE 1 , HYPOTHYROIDISM contractions (Acute) Status post repeat low transverse section (Acute) Abnormal Lab Results 11/09/18 06:57 WBC 19.2 H Absolute Neuts (auto) 15.9 H Laboratory Results - last 24 hr 11/08/18 11/08/18 11/09/18 16:28 22:30 06:57 WBC 19.2 H RBC 4.27 Hgb 12.0 Hct 36.0 MCV 84.2 MCH 28.0 MCHC 33.3 RDW 13.3 Plt Count 146 MPV 11.1 Absolute Neuts (auto) 15.9 H Neutrophils % 82.8 Lymphocytes % 11.6 D Monocytes % 5.4 D Eosinophils % 0.1 Basophils % 0.1 Nucleated RBC % 0 RPR Titer Nonreactive Screen Negative Baby's Blood Type O positive Unit Expiration Date [id number] Laboratory Tests 02/15/15 08/05/18 08/05/18 21:05 11:49 11:49 WBC RBC Hgb Hct MCV MCH MCHC RDW Plt Count MPV Absolute Neuts (auto) Sodium 140 Potassium 4.0 Carbon Dioxide 24 Anion Gap 8 BUN 11 D Creatinine 0.4 L Est GFR (CKD-EPI)AfAm Est GFR (CKD-EPI)NonAf Random Glucose 81 D Hemoglobin A1c % 7.7 H Calcium TSH 1.00 11/08/18 11/09/18 16:28 06:57 WBC 19.2 H RBC 4.27 Hgb 12.0 Hct 36.0 MCV 84.2 MCH 28.0 MCHC 33.3 RDW 13.3 Plt Count 146 MPV 11.1 Absolute Neuts (auto) 15.9 H Sodium 141 Potassium 4.0 Carbon Dioxide 20 L Anion Gap 10 BUN 4.4 L Creatinine 0.7 Est GFR (CKD-EPI)AfAm 140.55 Est GFR (CKD-EPI)NonAf 121.27 Random Glucose 140 H Hemoglobin A1c % Calcium 8.5 TSH PLAN: CONTINUE INSULIN PUMP WITH CGM SYSTEM SYNTHROID 200MCG DAILY FOLLOW UP OUTPATIENT
[2018-11-10] MEDS: oxyCODONE HCL 5 MG TABLET PO PRN (00:31)
[2018-11-10] MEDS: IBUPROFEN 600 MG TABLET (FP) PO PRN ×2 (00:31→16:27)
[2018-11-10] MEDS: SIMETHICONE 80 MG TAB.CHEW (FP) PO PRN ×2 (00:31→16:27)
[2018-11-10] MEDS: LEVOTHYROXINE NA 200 MCG TABLET PO SCH (06:05)
--- NOTE | 2018-11-10 07:13 | PN ---
Progress Note (SOAP) - Subjective Chief Complaint: Pt doing well desires dressing removed - Current Medications Current Medications: Active Medications Acetaminophen (Tylenol -) 650 mg PO Q4H PRN PRN Reason: PAIN LEVEL 1-5 Bisacodyl (Dulcolax Suppository -) 10 mg RC PRN PRN PRN Reason: CONSTIPATION Diphenhydramine HCl (Benadryl Injection -) 25 mg IVPUSH Q4H PRN PRN Reason: Pruritis Lactated Ringer's (Lactated Ringers Solution) 1,000 mls @ 125 mls/hr IV ASDIR [facility] Last Admin: 11/08/18 15:20 Dose: 125 mls/hr Oxytocin/Sodium Chloride (Normal Saline+20 Units Oxytocin -) 20 unit in 1,000 mls @ 125 mls/hr IV ASDIR [facility] Parenteral Electrolytes (Plasma-Lyte 148 -) 1,000 mls @ 125 [facility] Last Admin: 11/08/18 19:00 Dose: 125 mls/hr Ibuprofen (Motrin -) 600 mg PO Q4H PRN PRN Reason: PAIN LEVEL 1 - 3 Last Admin: 11/10/18 00:31 Dose: 600 mg Ibuprofen (Caldolor Injection -) 800 mg IVPB Q6H PRN PRN Reason: FEVER Levothyroxine Sodium (Synthroid -) 200 mcg PO DAILY@0700 [facility] Last Admin: 11/10/18 06:05 Dose: 200 mcg Methylergonovine Maleate (Methergine Injection -) 0.2 mg IM Q4H PRN PRN Reason: Excessive Bleeding (L&D) Non-Formulary Medication (Insulin Pump Syringe, 3 Ml) 0 units SCJ PRN [facility] Ondansetron HCl (Zofran Injection) 4 mg IVPUSH Q4H PRN PRN Reason: NAUSEA Oxycodone HCl (Roxicodone -) 5 mg PO Q4H PRN PRN Reason: PAIN LEVEL 4 - 6 Oxycodone HCl (Roxicodone -) 10 mg PO Q4H PRN PRN Reason: PAIN LEVEL 7 - 10 Last Admin: 11/10/18 00:31 Dose: 10 mg Multivit/Folic Acid/Iron ( Vitamins (Sjr) -) 1 tab PO DAILY [facility] Last Admin: 11/09/18 10:18 Dose: Not Given Simethicone (Mylicon -) 80 mg PO Q4H PRN PRN Reason: GAS Last Admin: 11/10/18 00:31 Dose: 80 mg - Objective Vital Signs: Vital Signs Temperature 99.2 F 11/09/18 22:00 Pulse Rate 75 11/09/18 22:00 Respiratory Rate 18 11/09/18 23:00 Blood Pressure 109/63 11/09/18 22:00 O2 Sat by Pulse Oximetry (%) 95 11/09/18 01:00 Constitutional: Yes: Well Nourished, No Distress Gastrointestinal: Yes: WNL, Soft ....Post : Yes: Uterus firm, Uterus non-tender Breast(s): Yes: WNL Musculoskeletal: Yes: WNL Extremities: Yes: WNL Wound/Incision: Yes: Steri Strips, Open to air, Dressing Removed Neurological: Yes: WNL, Alert, Oriented Labs Lab Results: CBC, BMP 11/09/18 06:57 11/08/18 16:28 Problem List - Problems (1) delivery delivered Code(s): O82 - ENCOUNTER FOR DELIVERY WITHOUT INDICATION (2) Hypothyroid Code(s): E03.9 - HYPOTHYROIDISM, UNSPECIFIED (3) Status post repeat low transverse section Code(s): Z98.891 - HISTORY OF UTERINE SCAR FROM PREVIOUS SURGERY (4) Diabetes mellitus, insulin dependent (IDDM), uncontrolled Code(s): E10.65 - TYPE 1 DIABETES MELLITUS WITH HYPERGLYCEMIA Assessment/Plan POD1 Stable SP Section Hypothyroid IDDm Plan OOB endo consult appreciated Continue present management
[2018-11-10] MEDS: PRENATAL VITAMINS W/ FOLIC ACID TABLET (FP) PO SCH (10:29)
--- NOTE | 2018-11-10 10:52 | PN ---
Progress Note (short form) - Note Progress Note: Post op day#2.S/P C Section under spinal anesthesia with duramorph uneventful.Patient stable and has little pain for which she is on medication.No any anesthesia related problem.Patient Dc from the anesthesia care.
[2018-11-10] MEDS: ACETAMINOPHEN 325 MG TABLET (FP) PO PRN (16:27)
--- NOTE | 2018-11-11 06:13 | PN ---
Post Progress Note - Subjective Subjective: Pt doing well, no complaints. OOB. Ambulating, tolerating diet. VB minimal. BGs controlled with insulin pump Type of Delivery: Repeat C/S Vital Signs: Vital Signs Temperature 98.0 F 11/10/18 22:00 Pulse Rate 80 11/10/18 22:00 Respiratory Rate 18 11/10/18 22:00 Blood Pressure 119/76 11/10/18 22:00 O2 Sat by Pulse Oximetry (%) 95 11/09/18 01:00 Uterus: Yes: Fundus Firm Incision: Yes: Sutures intact Abdomen/GI: Yes: Abdomen soft, Passing flatus, Tolerating PO. No: Abdominal Distention, Tender Lochia: Yes: Rubra Lochia, amount: Small Extremities: Yes: Calves non-tender. No: Calf tenderness Perineum: Yes: Intact Activity: Ambulating - Labs Labs: CBC WBC 19.2 K/mm3 (4.0-10.0) H 11/09/18 06:57 RBC 4.27 M/mm3 (3.60-5.2) 11/09/18 06:57 Hgb 12.0 GM/dL (10.7-15.3) 11/09/18 06:57 Hct 36.0 % (32.4-45.2) 11/09/18 06:57 MCV 84.2 fl (80-96) 11/09/18 06:57 MCH 28.0 pg (25.7-33.7) 11/09/18 06:57 MCHC 33.3 g/dl (32.0-36.0) 11/09/18 06:57 RDW 13.3 % (11.6-15.6) 11/09/18 06:57 Plt Count 146 K/MM3 (134-434) 11/09/18 06:57 MPV 11.1 fl (7.5-11.1) 11/09/18 06:57 Absolute Neuts (auto) 15.9 K/mm3 (1.5-8.0) H 11/09/18 06:57 Neutrophils % 82.8 % (42.8-82.8) 11/09/18 06:57 Lymphocytes % 11.6 % (8-40) D 11/09/18 06:57 Monocytes % 5.4 % (3.8-10.2) D 11/09/18 06:57 Eosinophils % 0.1 % (0-4.5) 11/09/18 06:57 Basophils % 0.1 % (0-2.0) 11/09/18 06:57 Nucleated RBC % 0 % (0-0) 11/09/18 06:57 Problem List - Problems (1) delivery delivered Code(s): O82 - ENCOUNTER FOR DELIVERY WITHOUT INDICATION (2) Hypothyroid Code(s): E03.9 - HYPOTHYROIDISM, UNSPECIFIED (3) Status post repeat low transverse section Code(s): Z98.891 - HISTORY OF UTERINE SCAR FROM PREVIOUS SURGERY (4) Diabetes Code(s): E11.9 - TYPE 2 DIABETES MELLITUS WITHOUT COMPLICATIONS Qualifiers: Diabetes mellitus type: type 1 Diabetes mellitus complication status: without complication Qualified Code(s): E10.9 - Type 1 diabetes mellitus without complications Assessment/Plan 22 y/o POD#3 s/p repeat LTCS done at 34 weeks due to labor AFVSS Hgb stable BGs controlled with insulin pump appreciate endocrine consult pt doing well continue current care plan for discharged home 11/12
[2018-11-11] MEDS: LEVOTHYROXINE NA 200 MCG TABLET PO SCH (06:14)
[2018-11-11] MEDS: oxyCODONE HCL 5 MG TABLET PO PRN (06:17)
[2018-11-11] MEDS: SIMETHICONE 80 MG TAB.CHEW (FP) PO PRN ×2 (06:17→21:37)
[2018-11-11 07:22] LABS: BASO % 0.3 % (0-2.0); EOS % 2.4 % (0-4.5); HEMATOCRIT 34.2 % (32.4-45.2); HEMOGLOBIN 11.4 GM/dL (10.7-15.3); LYMPH % 29.6 % (8-40); MCH 28.2 pg (25.7-33.7); MCHC 33.3 g/dl (32.0-36.0); MEAN CELL VOLUME 84.6 fl (80-96); MEAN PLT VOLUME 10.5 fl (7.5-11.1); MONO % 4.9 % (3.8-10.2); NEUT % 62.8 % (42.8-82.8); RBC 4.04 M/mm3 (3.60-5.2); RDW 13.3 % (11.6-15.6); WHITE BLOOD COUNT 11.9 K/mm3 (4.0-10.0)
[2018-11-11 08:12] LABS: PLATELET COUNT 152 K/MM3 (134-434)
[2018-11-11] MEDS: PRENATAL VITAMINS W/ FOLIC ACID TABLET (FP) PO SCH (12:23)
[2018-11-11] MEDS: IBUPROFEN 600 MG TABLET (FP) PO PRN (21:37)
[2018-11-11] MEDS: ACETAMINOPHEN 325 MG TABLET (FP) PO PRN (21:38)
[2018-11-12] MEDS: LEVOTHYROXINE NA 200 MCG TABLET PO SCH (06:05)
[2018-11-12] MEDS: IBUPROFEN 600 MG TABLET (FP) PO PRN ×2 (06:07→16:35)
[2018-11-12] MEDS: ACETAMINOPHEN 325 MG TABLET (FP) PO PRN ×2 (06:07→16:34)
[2018-11-12 09:12] VITALS: BP 125/85; PULSE 74; TEMP 97.7
[2018-11-12] MEDS: PRENATAL VITAMINS W/ FOLIC ACID TABLET (FP) PO SCH (10:04)
--- NOTE | 2018-11-12 13:30 | DS ---
Physical Exam-GENERATION MANAGER Vital Signs: Vital Signs Temperature 97.7 F 11/12/18 09:09 Pulse Rate 74 11/12/18 09:09 Respiratory Rate 18 11/12/18 09:09 Blood Pressure 125/85 11/12/18 09:09 O2 Sat by Pulse Oximetry (%) 95 11/09/18 01:00 Constitutional: Yes: Well Nourished, No Distress Respiratory: Yes: WNL Gastrointestinal: Yes: WNL, Soft ....Post : Yes: Uterus firm, Uterus non-tender Breast(s): Yes: WNL Musculoskeletal: Yes: WNL Extremities: Yes: WNL Edema: No Wound/Incision: Yes: Steri Strips, Open to air Neurological: Yes: WNL, Alert, Oriented Labs: CBC, BMP 11/11/18 06:46 11/08/18 16:28 Delivery - Delivery Section: Low Flap Transverse Type of Anesthesia: Spinal Episiotomy/Laceration: None EBL (cc): 400 Delivery, Single - Stages of Labor Date 1st Stage Initiatied: 11/08/18 Time 1st Stage Initiated: 12:00 Date of Delivery: 11/08/18 Time of Delivery: 20:38 Time Placenta Delivered: 20:39 Placenta: Yes: Spontaneous - Condition of End User Support Specialist/Fur Repair Inspector Present: Yes Name: Valentine Saez Gender: Male Weight: 6 lb 5 oz Position: OA Total Hours ROM (Hrs/Mins): 2MIN - 1 Minute Total Score: 8 5 Minutes Total Score: 9 - [place] Feeding Plan Initial Plan: Exclusive throughout hospitalization Discharge Summary Reason For Visit: PRE-TERM LABOR Current Active Problems delivery delivered (Acute) Hypothyroid (Acute) contractions (Acute) Status post repeat low transverse section (Acute) Procedures: Principal: section Hospital Course: Unremarkable Condition: Stable - Instructions Diet, Activity, Other Instructions: Physical activity Resume your normal everyday activity as tolerated no heavy lifting or exercise until seen by your surgeon. You may walk unlimited daniel of and climb stairs. You may resume driving the car when you feel safe and comfortable behind the wheel. No sexual activity as instructed. Wound care If you have a bandage, leave it on, and keep dry for 48-72 hours. After that time discard the outer bandage. If they are tapes on the skin under the out of bandage leave them in place. They will peel off in the next 7 to 10 days. Do Not Peel them off. You may shower the day after surgery. If there are tapes present on the skin, you may shower over them. Diet There are no dietary restrictions. Eat healthy, high-fiber foods. Drink 6 to 8 glasses of liquid each day. This will assist in keeping your bowels are regular. Pain management You may take Tylenol or acetaminophen or Ibuprofen (for example, Motrin, Advil etc.) from my pain prescription medication is ordered should be taken as prescribed for moderate to severe pain. Call MD for any of the following: Severe pain not relieved by medication Fever of 101 or higher Excessive bleeding or drainage on dressing Inability to urinate Referrals: Nia Beckwith DO [Staff Physician] - Disposition: HOME - Home Medications Comprehensive Discharge Medication List: Ambulatory Orders Levothyroxine [Synthroid -] 200 mcg PO DAILY 09/04/13 Insulin Pump Syringe, 3 ml 0 units SCJ PRN 02/03/15 Hydroxyprogesterone Caproate [[place]] 250 mg IM WEEKLY 11/08/18 Vitamins (Sjr) - 1 tab PO DAILY 11/08/18 Ibuprofen [Motrin -] 600 mg PO QID #28 tablet 11/12/18
--- NOTE | 2018-11-12 16:32 | PATH ---
Surgical Pathology Report Patient Name: SONNY GIRON Med. Rec. #: [id number] /Age/Gender: 1995 (Age: 22) / F Account: [id number] Location: [facility] OBS/SUGAR REFINER Taken: 11/08/2018 Received: 11/09/2018 Reported: 11/12/2018 Physicians: Nia Beckwith M.D. Specimen(s) Received PLACENTA Clinical History 34.1 weeks in labor, repeat Final Diagnosis PLACENTA, SECTION: 514 G THIRD TRIMESTER PLACENTA WITH TRIVASCULAR UMBILICAL CORD AND UNREMARKABLE PLACENTAL MEMBRANES. Electronically Signed Mary Rodriguez M.D. Gross Description The specimen is received fresh labeled placenta, is a 514 gram, 16.0 x 15.0 x 2.7 cm. placenta with attached membranes and umbilical cord. The attached membranes are ruiz, translucent with focal opacities and insert marginally. The umbilical cord measures 35 cm. in length and averages 1.2 cm. in diameter. The cord inserts eccentrically, 3 cm. to the nearest margin. No true knots or strictures are identified. Cut surface of the umbilical cord reveals 3 vessels. The surface is tompkins-blue with minimal fibrin deposition and appropriate caliber vessels. The maternal surface is red-brown with focal defects. Sectioning reveals red-brown, spongy parenchyma. No lesions are identified. Microphone Boom Operator sections are submitted in three cassettes as follows: 1- membrane rolls and umbilical cord; 2-3- full thickness sections of placenta. /11/10/2018 saudi/11/10/2018
[2018-11-12] MEDS: SIMETHICONE 80 MG TAB.CHEW (FP) PO PRN (16:34)
== END 2018-11-12 18:00 | disposition home or self-care (01) | DRG 540 ==
LOC: JDEL 12:10 → JLDR 14:55 → J3W 11-09 00:20
PROVIDERS: ADMIT Obstetrics & Gynecology; ATTEND Obstetrics & Gynecology
PROC: 10D00Z1 Extraction of Products of Conception, Low, Open Approach (ICD-10-PCS; principal; 2018-11-08)
DX: O60.14X0 Preterm labor third trimester with preterm delivery third trimester, not applicable or unspecified (principal); O24.02 Pre-existing type 1 diabetes mellitus, in childbirth; O34.211 Maternal care for low transverse scar from previous cesarean delivery; O99.284 Endocrine, nutritional and metabolic diseases complicating childbirth; E03.9 Hypothyroidism, unspecified; Z3A.34 34 weeks gestation of pregnancy; Z37.0 Single live birth; Z79.4 Long term (current) use of insulin; E10.9 Type 1 diabetes mellitus without complications
CPT/HCPCS: 36415; 59025; 80048; 81003; 85025; 85461; 85610; 85730; 86593; 86850; 86870; 86900; 86901; 86902; 86999; 87086; 88307-TC; 96372

== ENCOUNTER 2018-11-14 19:44 | Emergency (ER) | payer OTHER ==
[2018-11-14 19:58] VITALS: BMI 36.6
--- NOTE | 2018-11-14 20:27 | PDOC ---
History of Present Illness - General Chief Complaint: Edema Stated Complaint: SWELLING IN BOTH LEGS Time Seen by Provider: 11/14/18 20:20 - History of Present Illness Initial Comments: 11/14/18 21:00 The patient is a 22 year old female with a history of DM, Hypothyroidism, Afib s /p ablation who presents for evaluation of lower extremity swelling. The patient reports that she had a recent 6 days ago due to pre-term labor and was discharged from the hospital 2 days ago. She has noted worsening bilateral lower extremity swelling since discharge worse with standing and sitting with mild improvement with lying flat prompting her presentation to the ED for further evaluation. The patient otherwise denies fevers, chills, headache, SOB, chest pain, nausea, vomiting, abdominal pain, or changes with urination or bowel movements. Past History - Past Medical History Allergies/Adverse Reactions: Allergies Allergy/AdvReac Type Severity Reaction Status Date / Time shellfish derived Allergy Unknown anaphylaxis Verified 11/14/18 19:58 cats Allergy Mild itchy eyes Uncoded 11/14/18 19:58 dogs Allergy Mild itchy eyes Uncoded 11/14/18 19:58 dust Allergy Mild itchy eyes Uncoded 11/14/18 19:58 Home Medications: Ambulatory Orders Levothyroxine [Synthroid -] 200 mcg PO DAILY 09/04/13 Insulin Pump Syringe, 3 ml 0 units SCJ PRN 02/03/15 Vitamins (Sjr) - 1 tab PO DAILY 11/08/18 Cephalexin Monohydrate [Keflex -] 500 mg PO BID #14 capsule 11/14/18 Asthma: No Cancer: No Cardiac Disorders: Yes (h/o afib-cardiac cath 2010) COPD: No Diabetes: Yes (type 1 diabetic) HTN: No Seizures: No Thyroid Disease: Yes (hypothyroidism) - Surgical History Cardiac Surgery: Yes (ablation A fib) - Immunization History Immunization Up to Date: Yes - Suicide/Smoking/Psychosocial Hx Smoking Status: No Smoking History: Never smoked Have you smoked in the past 12 months: No Number of Cigarettes Smoked Daily: 0 Hx Alcohol Use: No Drug/Substance Use Hx: No Substance Use Type: None Hx Substance Use Treatment: No Review of Systems - Review of Systems Comments:: 11/14/18 21:02 Constitutional: No fevers, chills, fatigue, malaise HEENT: No Rhinorrhea, nasal congestion, visual changes Cardiovascular: No chest pain, syncope, palpitations, lightheadedness Respiratory: No Cough, SOB, Hemoptysis, Gastrointestinal: No Abdominal pain, Nausea, Vomiting, Constipation, Diarrhea, Melena Genitourinary: No Dysuria, Frequency, Urgency, Hesitancy, Hematuria, Flank pain Musculoskeletal: Bilateral lower extremity edema. No Myalgia, arthralgia Skin: No rashes, itching, bruising, pallor Neurologic: No Headache, Dizziness, Numbness, Weakness, or Tingling Psychiatric: No Hallucinations. No SI or HI *Physical Exam - Vital Signs Last Vital Signs Temp Pulse Resp BP Pulse Ox 98 F 64 18 146/90 99 11/14/18 19:55 11/14/18 19:55 11/14/18 19:55 11/14/18 19:55 11/14/18 19:55 - Physical Exam Comments: 11/14/18 21:04 General Appearance: Nourished. No Apparent Distress HEENT: No Pharyngeal Erythema, Tonsillar Exudate, Tonsillar Erythema Neck: No Cervical Lymphadenopathy Respiratory/Chest: Lungs Clear, Normal Breath Sounds. No Crackles, Rales, Rhonchi, Wheezing Cardiovascular: Regular Rhythm, Regular Rate. No Murmur, Gallops, Rubs Gastrointestinal/Abdominal: Normal Bowel Sounds, Soft. No Guarding, Rebound, Tenderness Musculoskeletal: No CVA Tenderness Extremity: 2+ pitting edema to the bilateral lower extremities extending from the ankle distally. No Tenderness to palpation on exam. Normal Capillary Refill Integumentary: Normal Color, Dry, Warm Neurologic: Fully Oriented, Alert, Normal Mood/Affect, Normal Response, ED Treatment Course - LABORATORY CBC & Chemistry Diagram: 11/14/18 21:35 11/14/18 21:35 Medical Decision Making - Medical Decision Making 11/14/18 21:06 The patient is a 22 year old female with a history of DM, Hypothyroidism, Afib s /p ablation who presents for evaluation of lower extremity swelling. Differential includes but is not limited to: Depended Edema, DVT, Pre-eclampsia , Cardiomyopathy, Infectious, Metabolic Derangement. Given the patient's history and physical exam, we will obtain a cbc, cmp, cardiac profile, ekg, chest plain film, UA, DVT US to evaluate further. We will continue to monitor and reassess while here in the ED. 11/14/18 23:47 CBC, cmp, cardiac profile were unremarkable. Chest plain film was unremarkable. DVT US is negative as preliminarily read by our school operations manager radiologist. UA demonstrates positive leuk esterase with elevated wbc consistent with a UTI. We are comfortable discharging the patient home in stable condition on Keflex with OB follow up in 2 days. Patient made aware of impression and plan, return precautions discussed including but not limited to worsening pain or symptoms, fevers, or signs of infection, chest pain, respiratory distress, inability to tolerate oral intake, dehydration, syncope, or neurologic changes. The patient is to follow up with PMD and specialist as recommended within 1 week, follow up information provided and the patient will call for an appointment. The patient notes that she has a follow up appointment already scheduled with Dr. Beckwith in 2 days. The patient is to take medications as instructed for duration of time and continue with supportive care , avoid triggers and precipitants. Patient is safe for outpatient follow-up. *DC/Admit/Observation/Transfer Diagnosis at time of Disposition: Edema Qualifiers: Edema type: unspecified Qualified Code(s): R60.9 - Edema, unspecified - Discharge Dispostion Disposition: HOME Condition at time of disposition: Stable Decision to Admit order: No - Prescriptions Prescriptions: Cephalexin Monohydrate [Keflex -] 500 mg PO BID #14 capsule - Referrals Referrals: Nia Beckwith DO [Staff Physician] - - Patient Instructions Printed Discharge Instructions: DI for Urinary Tract Infection (UTI), DI for Dependent Edema Additional Instructions: 1) Please follow-up with your primary care doctor in the next 2-3 days. Please call tomorrow to schedule a follow up appointment. If you cannot follow up with your doctor within 1 week please return to the Emergency Department for any urgent issues. 2) Your imaging results were normal here in the ER. Your lab results show that you have a UTI and we have sent a prescription for antibiotics to your pharmacy. Please make sure you keep your follow up appointment with your OB physician in 2 days. 3) If you have any worsening of symptoms or any other concerns please return to the ER immediately. Return if worsening symptoms including fevers, headache, vomiting, visual or hearing disturbances, abdominal pain, chest pain, shortness of breath, syncope, dehydration, inability to take things by mouth/vomiting, altered mental status, or worsening concerning symptoms. 4) Please continue taking your home medications as directed. Your medications on discharge include Keflex that you should take twice a day for 7 days. Side effects may include upset stomach, abdominal pain, vomiting, or diarrhea. Do not drink alcohol with your medications. - Post Discharge Activity
--- NOTE | 2018-11-14 21:30 | PDOC ---
Documentation entered by Corazon Ratliff SCRIBE, acting as scribe for Andres Silva MD. Andres Silva MD: This documentation has been prepared by the Gaudencio mg Nirvannie, SCRIBE, under my direction and personally reviewed by me in its entirety. I confirm that the documentation accurately reflects all work, treatment, procedures, and medical decision making performed by me. Attending Attestation - Resident Resident Name: Noel Lopez - ED Attending Attestation I have performed the following: I have examined & evaluated the patient, The case was reviewed & discussed with the resident, I agree w/resident's findings & plan, Exceptions are as noted - HPI HPI: 11/14/18 20:57 The patient is a 22 year old female, with a significant past medical history of T1DM, hypothyroidism, Afib (with ablation, 2010, not anticoagulated), recent C- Section 6 days ago, who presents to the emergency department with bilateral lower extremity edema. She reports swelling to both ankles and feet. Patient notes decreased mobility secondary to recent surgery but denies any unilateral swelling. She denies recent fevers, chills, headache or dizziness. She denies recent nausea, vomit, diarrhea or constipation. She denies recent dysuria, frequency, urgency or hematuria. She denies recent chest pain or shortness of breath. Allergies: NKDA PIE MAKER MACHINE: Dr. Beckwith - Physicial Exam PE: 11/14/18 20:57 GENERAL: Awake, alert, and fully oriented, in no acute distress. HEAD: No signs of trauma EYES: PERRLA, EOMI, sclera anicteric, conjunctiva clear ENT: Auricles normal inspection, hearing grossly normal, nares patent, oropharynx clear without exudates. Moist mucosa NECK: Nontender, no stepoffs, Normal ROM, supple, no lymphadenopathy, JVD, or masses LUNGS: Breath sounds equal, clear to auscultation bilaterally. No wheezes, and no crackles HEART: Regular rate and rhythm, normal S1 and S2, no murmurs, rubs or gallops ABDOMEN: Soft, nontender, normoactive bowel sounds. No guarding, no rebound. No masses EXTREMITIES: +1 PE BLE, No clubbing or cyanosis. No cords, erythema, or tenderness NEUROLOGICAL: Cranial nerves II through XII intact. 5/5 strength and sensation in all extremities, Normal speech, normal gait, normal cerebellar function SKIN: Warm, Dry, normal turgor, no rashes or lesions noted. - Medical Decision Making 11/14/18 21:28 22 F with BLE edema after 6 days ago. Pt noted to have elevated BP > 140/90 in ED today. No h/o HTN. Will evaluate for pre-eclampsia. Also consider post- cardiomyopathy, though pt with no CP/SOB. Will r/o DVT with dopplers. - Labs, trop, BNP - UA - BLE dopplers 11/14/18 22:52 Labs notable for low protein and serum albumin. However, UA negative for proteinuria. Pt's pressure re-checked, now 138/93. Although pressure is still mildly elevated , pt with no other signs of pre-eclampsia. No signs of end organ damage, normal platelets, normal renal function, no proteinuria, no pulmonary edema. EKG and cardiac enzymes wnl. CXR clear UA is consistent with UTI, will start on keflex. Pt to f/u with Dr. Beckwith this week. Pt is well appearing, with normal vitals. Clinically stable for DC at this time. I discussed the physical exam findings, ancillary test results and final diagnoses with the patient. I answered all of the patient's questions. The patient was satisfied with the care received and felt comfortable with the discharge plan and treatment plan. The patient agrees to follow up with the primary care physician within 24-72 hours.
[2018-11-14 21:47] LABS: BASO % 0.5 % (0-2.0); EOS % 3.6 % (0-4.5); HEMATOCRIT 37.7 % (32.4-45.2); HEMOGLOBIN 12.5 GM/dL (10.7-15.3); LYMPH % 31.3 % (8-40); MCH 28.4 pg (25.7-33.7); MCHC 33.1 g/dl (32.0-36.0); MEAN PLT VOLUME 10.3 fl (7.5-11.1); MONO % 6.2 % (3.8-10.2); NEUT % 58.4 % (42.8-82.8); PLATELET COUNT 201 K/MM3 (134-434); RBC 4.39 M/mm3 (3.60-5.2); RDW 13.9 % (11.6-15.6)
[2018-11-14 22:06] LABS: ALBUMIN 2.4 g/dl (3.4-5.0); ALK PHOS 109 U/L (45-117); ANION GAP 7 MMOL/L (8-16); BILIRUBIN,TOTAL 0.1 mg/dL (0.2-1); BLOOD UREA NITROGEN 10.1 mg/dL (7-18); CALCIUM 8.6 mg/dL (8.5-10.1); CHLORIDE 108 mmol/L (98-107); CO2 26 mmol/L (21-32); CREATININE 0.6 mg/dL (0.55-1.3); GLUCOSE,RANDOM 198 mg/dL (74-106); N-TERMINAL BNP 72.1 pg/ml (5-125); POTASSIUM 4.1 mmol/L (3.5-5.1); SGOT/AST 14 U/L (15-37); SGPT/ALT 20 U/L (13-61); SODIUM 140 mmol/L (136-145); TOT PROT 5.8 g/dl (6.4-8.2)
[2018-11-14 22:48] LABS: EPI CELLS 2.4 /HPF (0-5/HPF); HYALINE CASTS 2 /lpf (0-8); URINE APPEARANCE CLEAR; URINE BACTERIA 17.8 /hpf (NEGATIVE); URINE BILIRUBIN NEGATIVE (NEGATIVE); URINE COLOR YELLOW; URINE GLUCOSE (UA) 3+ (NEGATIVE); URINE KETONE NEGATIVE (NEGATIVE); URINE LEUK ESTERASE 1+ (NEGATIVE); URINE NITRITE NEGATIVE (NEGATIVE); URINE PROTEIN NEGATIVE (NEGATIVE); URINE RBC 85 /hpf (0-4); URINE WBC 13 /hpf (0-5)
[2018-11-14 23:17] LABS: PLATELET ESTIMATE ADEQUATE
[2018-11-14 23:44] VITALS: BP 134/86; PULSE 78; TEMP 98.2
--- NOTE | 2018-11-15 11:17 | EKG ---
Test Reason : Blood Pressure : / mmHG Vent. Rate : 063 BPM Atrial Rate : 063 BPM P-R Int : 136 ms QRS Dur : 070 ms QT Int : 414 ms P-R-T Axes : 047 017 022 degrees QTc Int : 423 ms NORMAL SINUS RHYTHM CANNOT RULE OUT ANTERIOR INFARCT , AGE UNDETERMINED ABNORMAL ECG WHEN COMPARED WITH ECG OF 26-MAR-2017 02:18, T WAVE AMPLITUDE HAS INCREASED IN LATERAL LEADS Confirmed by WILL AVERY, KRISTEN ([id number]) on 11/15/2018 11:16:48 AM Referred By: Confirmed By:KRISTEN SOLIS MD
== END 2018-11-14 23:44 | disposition home or self-care (01) ==
LOC: JER 19:44
DX: R60.9 Edema, unspecified (principal); E03.9 Hypothyroidism, unspecified; I48.91 Unspecified atrial fibrillation; E10.9 Type 1 diabetes mellitus without complications
CPT/HCPCS: 36415; 71046-TC-FY; 80053; 81003; 82550; 83880; 84484; 85025; 93005; 93010; 93970-TC; 99283-25

== ENCOUNTER 2019-12-05 20:56 | Inpatient (IN) | payer OTHER ==
[2019-12-05 21:03] VITALS: BMI 37.5
[2019-12-05] MEDS ORDERED: SODIUM CHLORIDE 1,000 ML IV STA ×2 (21:06→22:53)
--- NOTE | 2019-12-05 21:06 | PDOC ---
Rapid Medical Evaluation Chief Complaint: Blood Sugar Problem Time Seen by Provider: 12/05/19 21:05 Medical Evaluation: Allergies Allergy/AdvReac Type Severity Reaction Status Date / Time shellfish derived Allergy Unknown anaphylaxis Verified 12/05/19 21:03 cats Allergy Mild itchy eyes Uncoded 12/05/19 21:03 dogs Allergy Mild itchy eyes Uncoded 12/05/19 21:03 dust Allergy Mild itchy eyes Uncoded 12/05/19 21:03 Vital Signs Temp Pulse Resp BP Pulse Ox 98.3 F 95 H 20 135/80 100 12/05/19 21:00 12/05/19 21:00 12/05/19 21:00 12/05/19 21:00 12/05/19 21:00 12/05/19 21:07 24 year old female c/o high blood sugar reading at home. PMHX: IDDM. denies NVD. Patient alert ox3. A: hyperglycemia P: labs Discharge Disposition - Diagnosis Hyperglycemia - Referrals - Patient Instructions - Post Discharge Activity
[2019-12-05 21:30] LABS: VENOUS BASE EXCESS -1.8 mmol/L (-2-2); VENOUS O2 SATURATION 36.9 % (70-80); VENOUS PCO2 44.1 mmHg (38-52); VENOUS PH 7.352 (7.310-7.410)
[2019-12-05 21:31] LABS: BASO % 0.7 % (0-2.0); EOS % 0.7 % (0-4.5); HEMATOCRIT 44.1 % (32.4-45.2); HEMOGLOBIN 14.5 GM/dL (10.7-15.3); LYMPH % 40.4 % (8-40); MCH 28.8 pg (25.7-33.7); MEAN CELL VOLUME 87.5 fl (80-96); MEAN PLT VOLUME 12.2 fl (7.5-11.1); NEUT % 52.2 % (42.8-82.8); PLATELET COUNT 185 K/MM3 (134-434); RBC 5.04 M/mm3 (3.60-5.2); WHITE BLOOD COUNT 7.5 K/mm3 (4.0-10.0)
[2019-12-05 21:40] LABS: PH,URINE 6.5 (5.0-8.0); URINE APPEARANCE CLEAR; URINE BILIRUBIN NEGATIVE (NEGATIVE); URINE COLOR YELLOW; URINE GLUCOSE (UA) 3+ (NEGATIVE); URINE KETONE NEGATIVE (NEGATIVE); URINE LEUK ESTERASE NEGATIVE (NEGATIVE); URINE NITRITE NEGATIVE (NEGATIVE); URINE PROTEIN NEGATIVE (NEGATIVE); URINE UROBILINOGEN 0.2 mg/dL (0.2-1.0)
[2019-12-05 21:54] LABS: INR 0.91 (0.83-1.09); PROTHROMBIN TIME (PATIENT) 10.7 SEC (9.7-13.0)
--- NOTE | 2019-12-05 21:56 | PDOC ---
Attending Attestation - Resident Resident Name: Columba Mercado - ED Attending Attestation I have performed the following: I have examined & evaluated the patient, The case was reviewed & discussed with the resident, I agree w/resident's findings & plan - HPI HPI: 12/06/19 00:43 see resident hpi - Physicial Exam PE: 12/06/19 00:43 see resident exam - Medical Decision Making 12/06/19 00:43 24-year-old female with history of hypothyroidism as well as type 1 diabetes currently insulin pump dependent with labile blood sugars of greater than 600 Labs consistent with diabetic hyperglycemia without indication of diabetic ketoacidosis Plan for IV fluid administration plus regular insulin Insulin pump is held at this time Due to complexity of blood sugar control will admit for further management and endocrine evaluation Discharge - Discharge Information Problems reviewed: Yes Clinical Impression/Diagnosis: Hyperglycemia, Diabetes mellitus, insulin dependent (IDDM), uncontrolled - Follow up/Referral Referrals: Reymundo Welsh MD [Primary Care Provider] - - Patient Discharge Instructions - Post Discharge Activity
[2019-12-05 21:57] LABS: ACTIVATED PTT 33.3 SECONDS (25.2-36.5)
[2019-12-05 22:09] LABS: ALK PHOS 81 U/L (45-117); ANION GAP 10 MMOL/L (8-16); BILIRUBIN,TOTAL 0.4 mg/dL (0.2-1); BLOOD UREA NITROGEN 14.7 mg/dL (7-18); CHLORIDE 98 mmol/L (98-107); CO2 23 mmol/L (21-32); CREATININE 1.1 mg/dL (0.55-1.3); POTASSIUM 4.5 mmol/L (3.5-5.1); SGOT/AST 7 U/L (15-37); SGPT/ALT 16 U/L (13-61); SODIUM 131 mmol/L (136-145); TOT PROT 7.4 g/dl (6.4-8.2)
[2019-12-05 22:39] LABS: GLUCOSE,RANDOM 712 mg/dL (74-106)
[2019-12-05] MEDS ORDERED: INSULIN REGULAR HUMAN 100 UNITS/ML *VIAL SQ ONE (22:55)
--- NOTE | 2019-12-06 00:44 | PDOC ---
History of Present Illness - General Chief Complaint: Blood Sugar Problem Stated Complaint: HYPERGLYCEMIA Time Seen by Provider: 12/05/19 21:05 - History of Present Illness Initial Comments: Pt is a 24yo F with PMH Type 1 DM, hypothyroidism, afib s/p ablation who presents with elevated blood glucose. Patient was testing her blood glucose at home and had two readings at 7:30pm and 8:00pm that were >600. She gave herself 18U of humalog at 7:30. States that her sugars have never been this high and usually responding to insulin. Reports increased fatigue today and polyuria, anxiety. Denies n/v, abdominal pain, recent weight loss, weakness, change in vision, confusion/altered mental status. Review of insulin pump log indicates labile blood glucose readings. Pt states that she has had problems with her insulin pump in the past. PCP: [facility] PMH: see HPI PSHx: ablation, 2 Med: levothyroxine, humalog All: shellfish Past History - Medical History Allergies/Adverse Reactions: Allergies Allergy/AdvReac Type Severity Reaction Status Date / Time shellfish derived Allergy Unknown anaphylaxis Verified 12/05/19 21:03 cats Allergy Mild itchy eyes Uncoded 12/05/19 21:03 dogs Allergy Mild itchy eyes Uncoded 12/05/19 21:03 dust Allergy Mild itchy eyes Uncoded 12/05/19 21:03 Home Medications: Ambulatory Orders Levothyroxine [Synthroid -] 200 mcg PO DAILY 09/04/13 Insulin Pump Syringe, 3 ml 0 units SCJ PRN 02/03/15 Vitamins (Sjr) - 1 tab PO DAILY 11/08/18 Cephalexin Monohydrate [Keflex -] 500 mg PO BID #14 capsule 11/14/18 Asthma: No Cancer: No Cardiac Disorders: Yes (h/o afib-cardiac cath 2010) COPD: No Diabetes: Yes HTN: No Seizures: No Thyroid Disease: Yes - Surgical History Cardiac Surgery: Yes (ablation A fib) - Immunization History Immunization Up to Date: Yes - Psycho-Social/Smoking History Smoking Status: No Smoking History: Never smoked Have you smoked in the past 12 months: No Number of Cigarettes Smoked Daily: 0 Information on smoking cessation initiated: No - Substance Abuse Hx (Audit-C & DAST Scrn) How often the patient has a drink containing alcohol: Never Score: In Men: 4 or > Positive; In Women: 3 or > Positive: 0 Screen Result (Pos requires Nsg. Audit-10AR): Negative In the last yr the pt used illegal drug/Rx for NonMed reason: No Score: Yes response is considered Positive: 0 Screen Result (Positive result requires Nsg. DAST-10): Negative Review of Systems - Review of Systems Comments:: CONSTITUTIONAL:denies fever, chills, diaphoresis, generalized weakness, loss of appetite HEENT:denies rhinorrhea, nasal congestion, sore throat, ear pain, eye pain, visual Changes CARDIOVASCULAR:denies chest pain, syncope, palpitations, lightheadedness RESPIRATORY:denies cough, shortness of breath, dyspnea with exertion, orthopnea, wheezing GASTROINTESTINAL: denies abdominal pain, nausea, vomiting, diarrhea, constipation GENITOURINARY:reports polyuria; denies dysuria, hesitancy, hematuria, flank pain, genital pain MUSCULOSKELETAL:denies myalgia, arthralgia, neck pain, back pain HEMATOLOGIC/IMMUNOLOGIC:denies easy bleeding, easy bruising, frequent infections ENDOCRINE: denies unexplained weight gain, unexplained weight loss, heat intolerance, cold intolerance NEUROLOGIC:denies headache, loss of consciousness, focal weakness or paresthesias, dizziness, unsteady gait, mental status changes, bladder or bowel incontinence SKIN:denies rash, itching PSYCH: reports anxiety *Physical Exam - Vital Signs Last Vital Signs Temp Pulse Resp BP Pulse Ox 98.3 F 95 H 20 135/80 100 12/05/19 21:00 12/05/19 21:00 12/05/19 21:00 12/05/19 21:00 12/05/19 21:00 - Physical Exam General: awake, alert, fully oriented, in no acute distress, well developed, well nourished Head: normocephalic, atraumatic Eyes: PERRL, EOMI, anicteric sclera ENT: hearing grossly normal, nares patent, oropharynx clear without exudates. No nasal congestion, Moist mucous membranes Neck: supple, normal ROM, no LAD, JVD; bilateral enlarged thyroid Lung: equal breath sounds b/l, CTA b/l, no crackles, wheezes; no distress, speaks full sentences Heart: RRR, normal S1, S2, no murmurs, rubs, gallops Abdomen: soft, non tender, normoactive bowel sounds, no guarding, rebound, masses Extremities: normal ROM, no edema, no erythema or tenderness, DP/PT pulses 2+ and symmetric, no clubbing, cyanosis Neuro: CN2-12 grossly intact, moves all extremities, normal speech, normal gait, sensation intact Skin: warm, dry, no rashes or lesions noted ED Treatment Course - LABORATORY CBC & Chemistry Diagram: 12/05/19 21:20 12/05/19 21:20 - ADDITIONAL ORDERS Additional order review: Laboratory Results 12/05/19 12/05/19 12/05/19 21:20 21:20 21:20 PT with INR INR PTT (Actin FS) VBG pH 7.352 POC VBG pCO2 44.1 POC VBG pO2 22.8 L VBG HCO3 23.9 VBG O2 Sat (Yvonne) 36.9 L VBG Base Excess -1.8 Sodium 131 L Potassium 4.5 Chloride 98 Carbon Dioxide 23 Anion Gap 10 BUN 14.7 Creatinine 1.1 Est GFR (CKD-EPI)AfAm 80.24 Est GFR (CKD-EPI)NonAf 69.24 POC Glucometer Random Glucose 712 H* Calcium 9.0 Total Bilirubin 0.4 AST 7 L ALT 16 Alkaline Phosphatase 81 Creatine Kinase 107 Troponin I < 0.02 Total Protein 7.4 Albumin 4.0 Beta-Hydroxybutyrate TSH Free T4 Urine Color Yellow Urine Appearance Clear Urine pH 6.5 D Ur Specific [place] 1.033 Urine Protein Negative Urine Glucose (UA) 3+ H Urine Ketones Negative Urine Blood Negative Urine Nitrite Negative Urine Bilirubin Negative Urine Urobilinogen 0.2 Ur Leukocyte Esterase Negative 12/05/19 12/05/19 12/05/19 21:20 21:20 21:03 PT with INR 10.70 INR 0.91 PTT (Actin FS) 33.3 VBG pH POC VBG pCO2 POC VBG pO2 VBG HCO3 VBG O2 Sat (Yvonne) VBG Base Excess Sodium Potassium Chloride Carbon Dioxide Anion Gap BUN Creatinine Est GFR (CKD-EPI)AfAm Est GFR (CKD-EPI)NonAf POC Glucometer > 600 Random Glucose Calcium Total Bilirubin AST ALT Alkaline Phosphatase Creatine Kinase Troponin I Total Protein Albumin Beta-Hydroxybutyrate 3.9 H TSH 1.71 Free T4 1.30 Urine Color Urine Appearance Urine pH Ur Specific [place] Urine Protein Urine Glucose (UA) Urine Ketones Urine Blood Urine Nitrite Urine Bilirubin Urine Urobilinogen Ur Leukocyte Esterase 12/05/19 12/05/19 21:20 21:03 RBC 5.04 MCV 87.5 MCHC 33.0 RDW 13.0 MPV 12.2 H Neutrophils % 52.2 Lymphocytes % 40.4 H Monocytes % 6.0 Eosinophils % 0.7 Basophils % 0.7 POC Glucometer > 600 - Medications Given in the ED: ED Medications Discontinued Medications Generic Name Dose Route Start Last Admin Trade Name Agueda PRN Reason Stop Dose Admin Sodium Chloride 1,000 mls @ 1,000 mls/hr 12/05/19 21:06 12/05/19 21:22 Normal Saline - IV 12/05/19 22:05 1,000 mls/hr .Q1H STA Administration Sodium Chloride 1,000 mls @ 1,000 mls/hr 12/05/19 22:53 12/05/19 23:20 Normal Saline - IV 12/05/19 23:52 1,000 mls/hr ASDIR STA Administration Insulin Human Regular 8 units 12/05/19 22:55 12/05/19 23:20 Novolin R Vial *For Ivpush Or Iv Drip Only* SQ 12/05/19 22:56 8 units ONCE ONE Administration Medical Decision Making - Medical Decision Making Pt is a 24yo F with PMH Type 1 DM, hypothyroidism, afib s/p ablation, who presents with elevated blood glucose (600 x2) Vital Signs Period Temp Pulse Resp BP Sys/Reed Pulse Ox Last 24 Hr 98.3 F 86-95 18-20 135-143/79-80 98-100 DDx: DKA, infection, hyperthyroidism Plan: labs, IVF, insulin Labs: no anemia, no leukocytosis, elevated serum ketones, normal TSH/T4, electrolytes WNL, no anion gap UA: glucosuria, no bacteria, - LE, - nitrites Laboratory Tests 12/05/19 12/05/19 12/05/19 21:03 21:20 21:20 WBC 7.5 RBC 5.04 Hgb 14.5 Hct 44.1 MCV 87.5 MCH 28.8 MCHC 33.0 RDW 13.0 Plt Count 185 MPV 12.2 H Absolute Neuts (auto) 3.9 Neutrophils % 52.2 Lymphocytes % 40.4 H Monocytes % 6.0 Eosinophils % 0.7 Basophils % 0.7 Nucleated RBC % 0 PT with INR INR PTT (Actin FS) VBG pH POC VBG pCO2 POC VBG pO2 VBG HCO3 VBG O2 Sat (Yvonne) VBG Base Excess Sodium Potassium Chloride Carbon Dioxide Anion Gap BUN Creatinine Est GFR (CKD-EPI)AfAm Est GFR (CKD-EPI)NonAf POC Glucometer > 600 Random Glucose Calcium Total Bilirubin AST ALT Alkaline Phosphatase Creatine Kinase Troponin I Total Protein Albumin Beta-Hydroxybutyrate 3.9 H TSH 1.71 Free T4 1.30 Urine Color Urine Appearance Urine pH Ur Specific [place] Urine Protein Urine Glucose (UA) Urine Ketones Urine Blood Urine Nitrite Urine Bilirubin Urine Urobilinogen Ur Leukocyte Esterase 12/05/19 12/05/19 12/05/19 21:20 21:20 21:20 WBC RBC Hgb Hct MCV MCH MCHC RDW Plt Count MPV Absolute Neuts (auto) Neutrophils % Lymphocytes % Monocytes % Eosinophils % Basophils % Nucleated RBC % PT with INR 10.70 INR 0.91 PTT (Actin FS) 33.3 VBG pH POC VBG pCO2 POC VBG pO2 VBG HCO3 VBG O2 Sat (Yvonne) VBG Base Excess Sodium 131 L Potassium 4.5 Chloride 98 Carbon Dioxide 23 Anion Gap 10 BUN 14.7 Creatinine 1.1 Est GFR (CKD-EPI)AfAm 80.24 Est GFR (CKD-EPI)NonAf 69.24 POC Glucometer Random Glucose 712 H* Calcium 9.0 Total Bilirubin 0.4 AST 7 L ALT 16 Alkaline Phosphatase 81 Creatine Kinase 107 Troponin I < 0.02 Total Protein 7.4 Albumin 4.0 Beta-Hydroxybutyrate TSH Free T4 Urine Color Yellow Urine Appearance Clear Urine pH 6.5 D Ur Specific [place] 1.033 Urine Protein Negative Urine Glucose (UA) 3+ H Urine Ketones Negative Urine Blood Negative Urine Nitrite Negative Urine Bilirubin Negative Urine Urobilinogen 0.2 Ur Leukocyte Esterase Negative 12/05/19 12/06/19 21:20 00:53 WBC RBC Hgb Hct MCV MCH MCHC RDW Plt Count MPV Absolute Neuts (auto) Neutrophils % Lymphocytes % Monocytes % Eosinophils % Basophils % Nucleated RBC % PT with INR INR PTT (Actin FS) VBG pH 7.352 POC VBG pCO2 44.1 POC VBG pO2 22.8 L VBG HCO3 23.9 VBG O2 Sat (Yvonne) 36.9 L VBG Base Excess -1.8 Sodium Potassium Chloride Carbon Dioxide Anion Gap BUN Creatinine Est GFR (CKD-EPI)AfAm Est GFR (CKD-EPI)NonAf POC Glucometer 381 Random Glucose Calcium Total Bilirubin AST ALT Alkaline Phosphatase Creatine Kinase Troponin I Total Protein Albumin Beta-Hydroxybutyrate TSH Free T4 Urine Color Urine Appearance Urine pH Ur Specific [place] Urine Protein Urine Glucose (UA) Urine Ketones Urine Blood Urine Nitrite Urine Bilirubin Urine Urobilinogen Ur Leukocyte Esterase Given patient 2L IVF Given 8U insulin, subsequent BG 300s Given patient's labile glucose readings and history of insulin pump problems, patient to be admitted for uncontrolled T1DM. Patient expressed understanding and agree to plan Pt signed out to Leah ACEVES who accepted care for patient. Admitting Dr. Farley Disposition Admit Discharge - Discharge Information Problems reviewed: Yes Clinical Impression/Diagnosis: Hyperglycemia, Diabetes mellitus, insulin dependent (IDDM), uncontrolled Condition: Stable - Admission Yes - Follow up/Referral - Patient Discharge Instructions - Post Discharge Activity
--- NOTE | 2019-12-06 02:48 | HP ---
CHIEF COMPLAINT: here with elevated blood sugars >600 for 2 readings with no improvement despite receiving insulin by insulin pump PCP/Manager Ct: Dr. Welsh HISTORY OF PRESENT ILLNESS: This is a 24-year-old female with history of hypothyroidism and type 1 diabetes (last hgba1c 8.5) who currently has an insulin pump and has been having elevated blood sugars of greater than 600 X 2 this evening despite getting insulin by insulin pump. She reported feeling tired. She denied nausea or vomiting. On evaluation in the ER labs were consistent with hyperglycemia(blood gluocse 712). Anion gap was normal and there was no evidence of diabetic ketoacidosis (DKA). UA showed 3+ glucose and negative ketones. Sodium was 131. She received 2 liters of IV fluids and 18 Units of regular insulin. Insulin pump is being held at this time.Repeat blood sugars ranged in the 300's and she was asymptomatic and she was covered with Novolin insulin. Due to the complexity of blood sugar control she will be admitted for further medical management and endocrine evaluation. Recent Travel: no PAST MEDICAL HISTORY: hypothyroidism type I diabetes mellitus PAST SURGICAL HISTORY: none Social History: Smoking:no Alcohol:no Drugs: no Family History: noncontributory Allergies shellfish derived Allergy (Unknown, Verified 12/05/19 21:03) anaphylaxis pt states she had a blood test that told her she was allergic to shelfish. does not recall ever reacting to seafood. cats Allergy (Mild, Uncoded 12/05/19 21:03) itchy eyes dogs Allergy (Mild, Uncoded 12/05/19 21:03) itchy eyes dust Allergy (Mild, Uncoded 12/05/19 21:03) itchy eyes HOME MEDICATIONS: Home Medications Medication Instructions Recorded Levothyroxine [Synthroid -] 200 mcg PO DAILY 09/04/13 Insulin Pump Syringe, 3 ml 0 units SCJ PRN 02/03/15 Vitamins (Sjr) - 1 tab PO DAILY 11/08/18 Cephalexin Monohydrate [Keflex -] 500 mg PO BID #14 capsule 11/14/18 REVIEW OF SYSTEMS CONSTITUTIONAL: Absent: fever, chills, diaphoresis, generalized weakness, malaise, loss of appetite, weight change, fatigue HEENT: Absent: rhinorrhea, nasal congestion, throat pain, throat swelling, difficulty swallowing, mouth swelling, ear pain, eye pain, visual changes CARDIOVASCULAR: Absent: chest pain, syncope, palpitations, irregular heart rate, lightheadedness, peripheral edema RESPIRATORY: Absent: cough, shortness of breath, dyspnea with exertion, orthopnea, wheezing, stridor, hemoptysis GASTROINTESTINAL: Absent: abdominal pain, abdominal distension, nausea, vomiting, diarrhea, constipation, melena, hematochezia GENITOURINARY: Absent: dysuria, frequency, urgency, hesitancy, hematuria, flank pain, genital pain MUSCULOSKELETAL: Absent: myalgia, arthralgia, joint swelling, back pain, neck pain SKIN: Absent: rash, itching, pallor HEMATOLOGIC/IMMUNOLOGIC: Absent: easy bleeding, easy bruising, lymphadenopathy, frequent infections ENDOCRINE: Absent: unexplained weight gain, unexplained weight loss, heat intolerance, cold intolerance NEUROLOGIC: Absent: headache, focal weakness or paresthesias, dizziness, unsteady gait, seizure, mental status changes, bladder or bowel incontinence PSYCHIATRIC: Absent: anxiety, depression, suicidal or homicidal ideation, hallucinations. PHYSICAL EXAMINATION Vital Signs - 24 hr 12/05/19 12/06/19 21:00 00:15 Temperature 98.3 F Pulse Rate 95 H Pulse Rate [ 86 Left] Respiratory 20 18 Rate Blood Pressure 135/80 Blood Pressure 143/79 [Left Arm] O2 Sat by Pulse 100 98 Oximetry (%) general no acute distress vital signs reviewed afebrile lungs CTA nonlabored breathing effort no rales no wheezing heart s1s2 rate regular abdomen soft nontender extremities warm to touch no pitting edema skin nail beds and lips pink mood calm Laboratory Results - last 24 hr 12/05/19 12/05/19 12/05/19 21:03 21:20 21:20 WBC 7.5 RBC 5.04 Hgb 14.5 Hct 44.1 MCV 87.5 MCH 28.8 MCHC 33.0 RDW 13.0 Plt Count 185 MPV 12.2 H Absolute Neuts (auto) 3.9 Neutrophils % 52.2 Lymphocytes % 40.4 H Monocytes % 6.0 Eosinophils % 0.7 Basophils % 0.7 Nucleated RBC % 0 PT with INR INR PTT (Actin FS) VBG pH POC VBG pCO2 POC VBG pO2 VBG HCO3 VBG O2 Sat (Yvonne) VBG Base Excess Sodium Potassium Chloride Carbon Dioxide Anion Gap BUN Creatinine Est GFR (CKD-EPI)AfAm Est GFR (CKD-EPI)NonAf POC Glucometer > 600 Random Glucose Calcium Total Bilirubin AST ALT Alkaline Phosphatase Creatine Kinase Troponin I Total Protein Albumin Beta-Hydroxybutyrate 3.9 H TSH 1.71 Free T4 1.30 Urine Color Urine Appearance Urine pH Ur Specific [place] Urine Protein Urine Glucose (UA) Urine Ketones Urine Blood Urine Nitrite Urine Bilirubin Urine Urobilinogen Ur Leukocyte Esterase 12/05/19 12/05/19 12/05/19 21:20 21:20 21:20 WBC RBC Hgb Hct MCV MCH MCHC RDW Plt Count MPV Absolute Neuts (auto) Neutrophils % Lymphocytes % Monocytes % Eosinophils % Basophils % Nucleated RBC % PT with INR 10.70 INR 0.91 PTT (Actin FS) 33.3 VBG pH POC VBG pCO2 POC VBG pO2 VBG HCO3 VBG O2 Sat (Yvonne) VBG Base Excess Sodium 131 L Potassium 4.5 Chloride 98 Carbon Dioxide 23 Anion Gap 10 BUN 14.7 Creatinine 1.1 Est GFR (CKD-EPI)AfAm 80.24 Est GFR (CKD-EPI)NonAf 69.24 POC Glucometer Random Glucose 712 H* Calcium 9.0 Total Bilirubin 0.4 AST 7 L ALT 16 Alkaline Phosphatase 81 Creatine Kinase 107 Troponin I < 0.02 Total Protein 7.4 Albumin 4.0 Beta-Hydroxybutyrate TSH Free T4 Urine Color Yellow Urine Appearance Clear Urine pH 6.5 D Ur Specific [place] 1.033 Urine Protein Negative Urine Glucose (UA) 3+ H Urine Ketones Negative Urine Blood Negative Urine Nitrite Negative Urine Bilirubin Negative Urine Urobilinogen 0.2 Ur Leukocyte Esterase Negative 12/05/19 12/06/19 21:20 00:53 WBC RBC Hgb Hct MCV MCH MCHC RDW Plt Count MPV Absolute Neuts (auto) Neutrophils % Lymphocytes % Monocytes % Eosinophils % Basophils % Nucleated RBC % PT with INR INR PTT (Actin FS) VBG pH 7.352 POC VBG pCO2 44.1 POC VBG pO2 22.8 L VBG HCO3 23.9 VBG O2 Sat (Yvonne) 36.9 L VBG Base Excess -1.8 Sodium Potassium Chloride Carbon Dioxide Anion Gap BUN Creatinine Est GFR (CKD-EPI)AfAm Est GFR (CKD-EPI)NonAf POC Glucometer 381 Random Glucose Calcium Total Bilirubin AST ALT Alkaline Phosphatase Creatine Kinase Troponin I Total Protein Albumin Beta-Hydroxybutyrate TSH Free T4 Urine Color Urine Appearance Urine pH Ur Specific [place] Urine Protein Urine Glucose (UA) Urine Ketones Urine Blood Urine Nitrite Urine Bilirubin Urine Urobilinogen Ur Leukocyte Esterase ASSESSMENT/PLAN: 24-year-old female with history of hypothyroidism and type 1 diabetes (last hgba1c 8.5) with an insulin pump who present as she has been having elevated blood sugars of greater than 600 X 2 this evening despite getting insulin by insulin pump. She has hyperglycemia. Anion gap was normal and there was no evidence of diabetic ketoacidosis (DKA). Due to the complexity of blood sugar control will admit for further medical management and endocrine evaluation. 1. Hyperglycemia/hx type I DM(uncontrolled) sugars ranging >600-700, anion gap 10 etiology unclear(not taking steroids) improved with novolin coverage insulin pump on hold last hgba1c 8.5 BGM q4hr Novolin insulin as per sliding scale Endocrinology consulted - Dr. Welsh 2. Hypothyroidism reports feeling fatigue TSH 1.71, free t4 131 c/w synthroid 3. R/O COVID (low suspicion) follow up on COVID nasal swab- sent 12/05 maintain strict contact/droplet isolation precautions maintain o2 sat >90% DVT Prophylaxis low risk encourage early ambulation when sugars under better control FEN no IVF indicated(received 2 L NS) BMP daily, replete electrolytes as needed ADA diet Visit type - Emergency Visit Emergency Visit: Yes ED Registration Date: 12/06/19 Care time: The patient presented to the Emergency Department on the above date and was hospitalized for further evaluation of their emergent condition. - New Patient This patient is new to me today: Yes Date on this admission: 12/06/19 - Critical Care Critical Care patient: No
[2019-12-06] MEDS ORDERED: INSULIN (NOVOLOG) ASPART 100 UNITS/ML 10ML VIAL SQ STA (03:17)
[2019-12-06] MEDS ORDERED: INSULIN SLIDING SCALE (NOVOLOG) 1 VIAL SQ SCH (07:00)
--- NOTE | 2019-12-06 09:14 | EKG ---
Test Reason : Blood Pressure : / mmHG Vent. Rate : 076 BPM Atrial Rate : 076 BPM P-R Int : 156 ms QRS Dur : 074 ms QT Int : 402 ms P-R-T Axes : 061 028 018 degrees QTc Int : 452 ms NORMAL SINUS RHYTHM NORMAL ECG WHEN COMPARED WITH ECG OF 14-NOV-2018 21:44, NO SIGNIFICANT CHANGE WAS FOUND Confirmed by MD RAHUL, GREGORIO ([id number]) on 12/06/2019 9:14:06 AM Referred By: Confirmed By:GREGORIO KAY MD
[2019-12-06] MEDS: LEVOTHYROXINE NA 100 MCG TABLET (FP) PO SCH (09:33)
--- NOTE | 2019-12-06 10:52 | PN ---
Progress Note (short form) - Note Progress Note: Events noted denies dysuria denies abdominal pain she has been coughing on and off since August -- appears she may have COVID at that time0 her dad had in August due to COVID She has wheezing and a croup like cough for the past few weeks No SOB She is depressed and anxious after of father Vital Signs - 24 hr 12/05/19 12/06/19 12/06/19 21:00 00:15 03:03 Temperature 98.3 F Pulse Rate 95 H Pulse Rate [ 86 Left] Respiratory 20 18 Rate Blood Pressure 135/80 Blood Pressure 143/79 [Left Arm] O2 Sat by Pulse 100 98 99 Oximetry (%) 12/06/19 12/06/19 05:47 07:03 Temperature 98.7 F Pulse Rate Pulse Rate [ 88 Left] Respiratory 18 Rate Blood Pressure Blood Pressure 119/79 [Left Arm] O2 Sat by Pulse 98 Oximetry (%) Current Medications Generic Name Dose Route Start Last Admin Trade Name Freq PRN Reason Stop Dose Admin Insulin Aspart 1 vial 12/06/19 11:00 Novolog Vial Sliding Scale - SQ ACHS [facility] Protocol Levothyroxine Sodium 200 mcg 12/06/19 07:00 12/06/19 09:33 Synthroid - PO 200 mcg AM [facility] Administration Laboratory Results - last 24 hr 12/05/19 12/05/19 12/05/19 21:03 21:20 21:20 WBC 7.5 RBC 5.04 Hgb 14.5 Hct 44.1 MCV 87.5 MCH 28.8 MCHC 33.0 RDW 13.0 Plt Count 185 MPV 12.2 H Absolute Neuts (auto) 3.9 Neutrophils % 52.2 Lymphocytes % 40.4 H Monocytes % 6.0 Eosinophils % 0.7 Basophils % 0.7 Nucleated RBC % 0 PT with INR INR PTT (Actin FS) VBG pH POC VBG pCO2 POC VBG pO2 VBG HCO3 VBG O2 Sat (Yvonne) VBG Base Excess Sodium Potassium Chloride Carbon Dioxide Anion Gap BUN Creatinine Est GFR (CKD-EPI)AfAm Est GFR (CKD-EPI)NonAf POC Glucometer > 600 Random Glucose Calcium Total Bilirubin AST ALT Alkaline Phosphatase Creatine Kinase Troponin I Total Protein Albumin Beta-Hydroxybutyrate 3.9 H TSH 1.71 Free T4 1.30 Urine Color Urine Appearance Urine pH Ur Specific [place] Urine Protein Urine Glucose (UA) Urine Ketones Urine Blood Urine Nitrite Urine Bilirubin Urine Urobilinogen Ur Leukocyte Esterase 12/05/19 12/05/19 12/05/19 21:20 21:20 21:20 WBC RBC Hgb Hct MCV MCH MCHC RDW Plt Count MPV Absolute Neuts (auto) Neutrophils % Lymphocytes % Monocytes % Eosinophils % Basophils % Nucleated RBC % PT with INR 10.70 INR 0.91 PTT (Actin FS) 33.3 VBG pH POC VBG pCO2 POC VBG pO2 VBG HCO3 VBG O2 Sat (Yvonne) VBG Base Excess Sodium 131 L Potassium 4.5 Chloride 98 Carbon Dioxide 23 Anion Gap 10 BUN 14.7 Creatinine 1.1 Est GFR (CKD-EPI)AfAm 80.24 Est GFR (CKD-EPI)NonAf 69.24 POC Glucometer Random Glucose 712 H* Calcium 9.0 Total Bilirubin 0.4 AST 7 L ALT 16 Alkaline Phosphatase 81 Creatine Kinase 107 Troponin I < 0.02 Total Protein 7.4 Albumin 4.0 Beta-Hydroxybutyrate TSH Free T4 Urine Color Yellow Urine Appearance Clear Urine pH 6.5 D Ur Specific [place] 1.033 Urine Protein Negative Urine Glucose (UA) 3+ H Urine Ketones Negative Urine Blood Negative Urine Nitrite Negative Urine Bilirubin Negative Urine Urobilinogen 0.2 Ur Leukocyte Esterase Negative 12/05/19 12/06/19 12/06/19 21:20 00:53 02:59 WBC RBC Hgb Hct MCV MCH MCHC RDW Plt Count MPV Absolute Neuts (auto) Neutrophils % Lymphocytes % Monocytes % Eosinophils % Basophils % Nucleated RBC % PT with INR INR PTT (Actin FS) VBG pH 7.352 POC VBG pCO2 44.1 POC VBG pO2 22.8 L VBG HCO3 23.9 VBG O2 Sat (Yvonne) 36.9 L VBG Base Excess -1.8 Sodium Potassium Chloride Carbon Dioxide Anion Gap BUN Creatinine Est GFR (CKD-EPI)AfAm Est GFR (CKD-EPI)NonAf POC Glucometer 381 310 Random Glucose Calcium Total Bilirubin AST ALT Alkaline Phosphatase Creatine Kinase Troponin I Total Protein Albumin Beta-Hydroxybutyrate TSH Free T4 Urine Color Urine Appearance Urine pH Ur Specific [place] Urine Protein Urine Glucose (UA) Urine Ketones Urine Blood Urine Nitrite Urine Bilirubin Urine Urobilinogen Ur Leukocyte Esterase 12/06/19 12/06/19 05:45 07:55 WBC RBC Hgb Hct MCV MCH MCHC RDW Plt Count MPV Absolute Neuts (auto) Neutrophils % Lymphocytes % Monocytes % Eosinophils % Basophils % Nucleated RBC % PT with INR INR PTT (Actin FS) VBG pH POC VBG pCO2 POC VBG pO2 VBG HCO3 VBG O2 Sat (Yvonne) VBG Base Excess Sodium Potassium Chloride Carbon Dioxide Anion Gap BUN Creatinine Est GFR (CKD-EPI)AfAm Est GFR (CKD-EPI)NonAf POC Glucometer 152 71 Random Glucose Calcium Total Bilirubin AST ALT Alkaline Phosphatase Creatine Kinase Troponin I Total Protein Albumin Beta-Hydroxybutyrate TSH Free T4 Urine Color Urine Appearance Urine pH Ur Specific [place] Urine Protein Urine Glucose (UA) Urine Ketones Urine Blood Urine Nitrite Urine Bilirubin Urine Urobilinogen Ur Leukocyte Esterase S1 S2 RRR No pallor Lungs ronchi scattered Abd- soft,NT, obese No edema A/P Hyperglycemic state HYpothyroidism uncontrolled DM depression anxiety s/p COVID -- iv fluids -- off insulin pump for now-- check BGM -- diabetic diet -- check labs today -- Endocrinology eval -- COVID PCR pending -- check serology -- CXR - no infiltrate -- EKG-- NSR -- albuterol inhalation prn --start Buspar for depression and anxiety Problem List - Problems (1) Bronchitis due to COVID-19 virus Code(s): U07.1 - COVID POSITIVE; J40 - BRONCHITIS, NOT SPECIFIED ACUTE OR CHRONIC (2) Diabetes mellitus, insulin dependent (IDDM), uncontrolled Code(s): E10.65 - TYPE 1 DIABETES MELLITUS WITH HYPERGLYCEMIA (3) Hyperglycemia Code(s): R73.9 - HYPERGLYCEMIA, UNSPECIFIED (4) Diabetes Code(s): E11.9 - TYPE 2 DIABETES MELLITUS WITHOUT COMPLICATIONS Qualifiers: Diabetes mellitus type: type 1 Diabetes mellitus complication status: without complication Qualified Code(s): E10.9 - Type 1 diabetes mellitus without complications (5) Hypothyroid Code(s): E03.9 - HYPOTHYROIDISM, UNSPECIFIED
[2019-12-06] MEDS ORDERED: ALBUTEROL SO4 HFA INHALER IH PRN (10:56)
[2019-12-06] MEDS: SODIUM CHLORIDE 1,000 ML IV SCH ×2 (12:03→18:40)
[2019-12-06] MEDS: INSULIN SLIDING SCALE (NOVOLOG) 1 VIAL SQ SCH ×3 (12:04→22:19)
[2019-12-06] MEDS ORDERED: INSULIN (NOVOLOG) ASPART 100 UNITS/ML 10ML VIAL ONE ×2 (16:17→19:45)
[2019-12-06 18:37] LABS: BASO % 0.3 % (0-2.0); EOS % 0.5 % (0-4.5); HEMATOCRIT 42.3 % (32.4-45.2); HEMOGLOBIN 13.9 GM/dL (10.7-15.3); LYMPH % 22.3 % (8-40); MCH 28.6 pg (25.7-33.7); MCHC 32.9 g/dl (32.0-36.0); MEAN CELL VOLUME 86.8 fl (80-96); MEAN PLT VOLUME 12.7 fl (7.5-11.1); MONO % 4.4 % (3.8-10.2); NEUT % 72.5 % (42.8-82.8); PLATELET COUNT 196 K/MM3 (134-434); RBC 4.88 M/mm3 (3.60-5.2); RDW 13.1 % (11.6-15.6); WHITE BLOOD COUNT 14.8 K/mm3 (4.0-10.0)
[2019-12-06 19:07] LABS: ALBUMIN 3.7 g/dl (3.4-5.0); BILIRUBIN,TOTAL 0.5 mg/dL (0.2-1); BLOOD UREA NITROGEN 11.5 mg/dL (7-18); CALCIUM 9.1 mg/dL (8.5-10.1); CREATININE 0.8 mg/dL (0.55-1.3); POTASSIUM 4.4 mmol/L (3.5-5.1); TOT PROT 6.9 g/dl (6.4-8.2)
--- NOTE | 2019-12-06 21:45 | CONSULT ---
Consult Consult Specialty:: Endocrine Referred by:: Leah GARCIA Reason for Consultation:: DMT1 - History of Present Illness Chief Complaint: insulin pump not working/ high sugars nause and vomiting History of Present Illness: 24-year-old female with history of Type 1 DM,hypothyroidism (last hgba1c 8.5) who currently has an insulin pump and has blood sugars of greater than 600 X 2 despite taking insulin via insulin pump and bolusing was unable to keep sugars down,she felt the insulin was not effective lowering her sugars,she was found to have normal anion gap early dka,she corrected with insulin and iv fluid,she denies fever,cough or chest pain. - Past Medical History Cardio/Vascular: Yes: AFIB ...LMP: 03/20/14 Endocrine: Yes: Diabetes Mellitus, Hypothyroidism - Past Surgical History Past Surgical History: Yes: - Alcohol/Substance Use Hx Alcohol Use: No History of Substance Use: reports: None - Smoking History Smoking history: Never smoked Have you smoked in the past 12 months: No Aproximately how many cigarettes per day: 0 - Social History ADL: Independent History of Recent Travel: No Home Medications - Allergies Allergies/Adverse Reactions: Allergies Allergy/AdvReac Type Severity Reaction Status Date / Time shellfish derived Allergy Unknown anaphylaxis Verified 12/05/19 21:03 cats Allergy Mild itchy eyes Uncoded 12/05/19 21:03 dogs Allergy Mild itchy eyes Uncoded 12/05/19 21:03 dust Allergy Mild itchy eyes Uncoded 12/05/19 21:03 - Home Medications Home Medications: Ambulatory Orders Levothyroxine [Synthroid -] 200 mcg PO DAILY 09/04/13 Insulin Pump Syringe, 3 ml 0 units SCJ PRN 02/03/15 Vitamins (Sjr) - 1 tab PO DAILY 11/08/18 Cephalexin Monohydrate [Keflex -] 500 mg PO BID #14 capsule 11/14/18 Review of Systems - Review of Systems Constitutional: reports: Lethargy, Loss of Appetite, Malaise Eyes: reports: No Symptoms HENT: reports: No Symptoms Neck: reports: No Symptoms Cardiovascular: reports: No Symptoms Respiratory: reports: No Symptoms Gastrointestinal: reports: No Symptoms Genitourinary: reports: No Symptoms Breasts: reports: No Symptoms Reported Musculoskeletal: reports: No Symptoms Integumentary: reports: No Symptoms Neurological: reports: No Symptoms Endocrine: reports: No Symptoms Physical Exam Vital Signs: Vital Signs Temperature 98.8 F 12/06/19 15:35 Pulse Rate 83 12/06/19 15:35 Respiratory Rate 20 12/06/19 15:35 Blood Pressure 123/68 12/06/19 15:35 O2 Sat by Pulse Oximetry (%) 97 12/06/19 15:35 Labs: CBC, BMP 12/06/19 17:05 12/06/19 17:05 Problem List - Problems (1) Bronchitis due to COVID-19 virus Problems reviewed: Yes Code(s): U07.1 - COVID POSITIVE; J40 - BRONCHITIS, NOT SPECIFIED ACUTE OR CHRONIC (2) Diabetes mellitus, insulin dependent (IDDM), uncontrolled Problems reviewed: Yes Code(s): E10.65 - TYPE 1 DIABETES MELLITUS WITH HYPERGLYCEMIA (3) Hyperglycemia Problems reviewed: Yes Code(s): R73.9 - HYPERGLYCEMIA, UNSPECIFIED (4) Abdominal pain Problems reviewed: Yes Code(s): R10.9 - UNSPECIFIED ABDOMINAL PAIN (5) Atypical chest pain Code(s): R07.89 - OTHER CHEST PAIN (6) delivery delivered Problems reviewed: Yes Code(s): O82 - ENCOUNTER FOR DELIVERY WITHOUT INDICATION (7) Diabetes Problems reviewed: Yes Code(s): E11.9 - TYPE 2 DIABETES MELLITUS WITHOUT COMPLICATIONS Qualifiers: Diabetes mellitus type: type 1 Diabetes mellitus complication status: without complication Qualified Code(s): E10.9 - Type 1 diabetes mellitus without complications Assessment/Plan Current Active Problems DMType 1 uncontrolled hyperglycemia dka early corrected hypothyroidism raghavendra Bronchitis due to COVID-19 virus (Acute) Diabetes mellitus, insulin dependent (IDDM), uncontrolled (Acute) Hyperglycemia (Acute) Abnormal Lab Results 12/05/19 12/05/19 12/06/19 21:20 21:20 17:05 WBC 14.8 H MPV 12.7 H Absolute Neuts (auto) 10.7 H Chloride Random Glucose 712 H* AST Beta-Hydroxybutyrate 3.9 H 12/06/19 17:05 WBC MPV Absolute Neuts (auto) Chloride 108 H Random Glucose 342 H AST 9 L Beta-Hydroxybutyrate Laboratory Results - last 24 hr 12/05/19 12/05/19 12/06/19 21:20 21:20 00:53 WBC RBC Hgb Hct MCV MCH MCHC RDW Plt Count MPV Absolute Neuts (auto) Neutrophils % Lymphocytes % Monocytes % Eosinophils % Basophils % Nucleated RBC % Sodium Potassium Chloride Carbon Dioxide Anion Gap BUN Creatinine Est GFR (CKD-EPI)AfAm Est GFR (CKD-EPI)NonAf POC Glucometer 381 Random Glucose 712 H* Calcium Total Bilirubin AST ALT Alkaline Phosphatase Total Protein Albumin Beta-Hydroxybutyrate 3.9 H TSH 1.71 Free T4 1.30 12/06/19 12/06/19 12/06/19 02:59 05:45 07:55 WBC RBC Hgb Hct MCV MCH MCHC RDW Plt Count MPV Absolute Neuts (auto) Neutrophils % Lymphocytes % Monocytes % Eosinophils % Basophils % Nucleated RBC % Sodium Potassium Chloride Carbon Dioxide Anion Gap BUN Creatinine Est GFR (CKD-EPI)AfAm Est GFR (CKD-EPI)NonAf POC Glucometer 310 152 71 Random Glucose Calcium Total Bilirubin AST ALT Alkaline Phosphatase Total Protein Albumin Beta-Hydroxybutyrate TSH Free T4 12/06/19 12/06/19 12/06/19 11:53 16:25 17:05 WBC 14.8 H RBC 4.88 Hgb 13.9 Hct 42.3 MCV 86.8 MCH 28.6 MCHC 32.9 RDW 13.1 Plt Count 196 MPV 12.7 H Absolute Neuts (auto) 10.7 H Neutrophils % 72.5 D Lymphocytes % 22.3 D Monocytes % 4.4 Eosinophils % 0.5 Basophils % 0.3 Nucleated RBC % 0 Sodium Potassium Chloride Carbon Dioxide Anion Gap BUN Creatinine Est GFR (CKD-EPI)AfAm Est GFR (CKD-EPI)NonAf POC Glucometer 290 272 Random Glucose Calcium Total Bilirubin AST ALT Alkaline Phosphatase Total Protein Albumin Beta-Hydroxybutyrate TSH Free T4 12/06/19 17:05 WBC RBC Hgb Hct MCV MCH MCHC RDW Plt Count MPV Absolute Neuts (auto) Neutrophils % Lymphocytes % Monocytes % Eosinophils % Basophils % Nucleated RBC % Sodium 139 Potassium 4.4 Chloride 108 H Carbon Dioxide 23 Anion Gap 9 BUN 11.5 Creatinine 0.8 Est GFR (CKD-EPI)AfAm 117.93 Est GFR (CKD-EPI)NonAf 101.75 POC Glucometer Random Glucose 342 H Calcium 9.1 Total Bilirubin 0.5 AST 9 L ALT 14 Alkaline Phosphatase 74 Total Protein 6.9 Albumin 3.7 Beta-Hydroxybutyrate TSH Free T4 plan: bgm qachs novolog scale levemir 12 u hs levemir 15 units am synthroid 200mcg daily diet 1800cal ada follow up with cde and insulin pump product trainer
[2019-12-06] MEDS ORDERED: PT OWN MED DRAWER 7, Y5N ONE (22:09)
[2019-12-06] MEDS: INSULIN (LEVEMIR) 100 UNITS/ML UNITS SQ SCH (22:20)
[2019-12-07] MEDS: busPIRone HCL 5 MG TABLET PO SCH ×2 (00:35→09:49)
[2019-12-07 06:24] VITALS: TEMP 98.5
[2019-12-07] MEDS: INSULIN SLIDING SCALE (NOVOLOG) 1 VIAL SQ SCH ×2 (06:59→12:03)
[2019-12-07] MEDS: INSULIN (LEVEMIR) 100 UNITS/ML UNITS SQ SCH (07:00)
[2019-12-07] MEDS: LEVOTHYROXINE NA 100 MCG TABLET (FP) PO SCH (07:03)
[2019-12-07 08:41] LABS: BASO % 0.5 % (0-2.0); EOS % 1.1 % (0-4.5); HEMATOCRIT 38.7 % (32.4-45.2); HEMOGLOBIN 12.9 GM/dL (10.7-15.3); LYMPH % 43.1 % (8-40); MCH 28.6 pg (25.7-33.7); MCHC 33.4 g/dl (32.0-36.0); MEAN CELL VOLUME 85.4 fl (80-96); MONO % 6.4 % (3.8-10.2); NEUT % 48.9 % (42.8-82.8); PLATELET COUNT 179 K/MM3 (134-434); RBC 4.53 M/mm3 (3.60-5.2); RDW 13.3 % (11.6-15.6); WHITE BLOOD COUNT 6.4 K/mm3 (4.0-10.0)
[2019-12-07 08:57] LABS: ALBUMIN 3.2 g/dl (3.4-5.0); BILIRUBIN,TOTAL 0.5 mg/dL (0.2-1); BLOOD UREA NITROGEN 8.9 mg/dL (7-18); CALCIUM 8.3 mg/dL (8.5-10.1); CREATININE 0.6 mg/dL (0.55-1.3); POTASSIUM 4.1 mmol/L (3.5-5.1)
[2019-12-07] MEDS: SODIUM CHLORIDE 1,000 ML IV SCH ×2 (09:49→12:04)
[2019-12-07] MEDS ORDERED: INSULIN (NOVOLOG) ASPART 100 UNITS/ML 10ML VIAL ONE (12:00)
[2019-12-07] MEDS ORDERED: guaiFENesin 200 MG/10 ML 10 ML UNIT-DOSE CUPS PO PRN (12:09)
--- NOTE | 2019-12-07 12:26 | DS ---
Physical Examination Vital Signs: Vital Signs Temperature 98.5 F 12/07/19 06:00 Pulse Rate 86 12/07/19 06:00 Respiratory Rate 20 12/07/19 06:00 Blood Pressure 114/73 12/07/19 06:00 O2 Sat by Pulse Oximetry (%) 97 12/07/19 12:00 Constitutional: Yes: No Distress, Calm Cardiovascular: Yes: Regular Rate and Rhythm Respiratory: Yes: CTA Bilaterally Gastrointestinal: Yes: Normal Bowel Sounds, Soft. No: Tenderness Edema: No Labs: CBC, BMP 12/07/19 07:25 12/07/19 07:25 Discharge Summary Problems reviewed: Yes Reason For Visit: HYPERGLYCEMIA Current Active Problems Bronchitis due to COVID-19 virus (Acute) Diabetes mellitus, insulin dependent (IDDM), uncontrolled (Acute) Hyperglycemia (Acute) Hospital Course: CHIEF COMPLAINT: here with elevated blood sugars >600 for 2 readings with no improvement despite receiving insulin by insulin pump PCP/Disability Counselor: Dr. Welsh HISTORY OF PRESENT ILLNESS: This is a 24-year-old female with history of hypothyroidism and type 1 diabetes (last hgba1c 8.5) who currently has an insulin pump and has been having elevated blood sugars of greater than 600 X 2 this evening despite getting insulin by insulin pump. She reported feeling tired. She denied nausea or vomiting. On evaluation in the ER labs were consistent with hyperglycemia(blood gluocse 712). Anion gap was normal and there was no evidence of diabetic ketoacidosis (DKA). UA showed 3+ glucose and negative ketones. Sodium was 131. She received 2 liters of IV fluids and 18 Units of regular insulin. Insulin pump is being held at this time.Repeat blood sugars ranged in the 300's and she was asymptomatic and she was covered with Novolin insulin. Due to the complexity of blood sugar control she will be admitted for further medical management and endocrine evaluation. HOSPITAL COURSE Pt admitted for iv fluids and insulin Evaluated by Disability Counselor -- advised to continue with the insulin pump , started on Levemir She has bronchitis- was on antibiotics- COVID negative Pt was started inhalers which actually helped her She also has depression and anxiety after her father's -- agreed to start Zoloft - no suicidal ideation Pt is better today Advised to follow up with Endocrinology and nm A1C 11 stable for dc home Condition: Stable - Instructions Referrals: Reymundo Welsh MD [Primary Care Provider] - Laly Farnsworth MD [Staff Physician] - 2 Weeks Disposition: HOME - Home Medications Comprehensive Discharge Medication List: Ambulatory Orders Levothyroxine [Synthroid -] 200 mcg PO DAILY 09/04/13 Insulin Pump Syringe, 3 ml 0 units SCJ PRN 02/03/15 Vitamins (Sjr) - 1 tab PO DAILY 11/08/18 Cephalexin Monohydrate [Keflex -] 500 mg PO BID #14 capsule 11/14/18
[2019-12-07 12:31] VITALS: BP 122/78; PULSE 88
== END 2019-12-07 14:12 | disposition home or self-care (01) | DRG 420 ==
LOC: JER 20:56 → JERBED 12-06 01:58 → J8W 12-06 15:32
PROVIDERS: ADMIT Internal Medicine; ATTEND Internal Medicine
PROC: 8E0ZXY6 Isolation (ICD-10-PCS; principal; 2019-12-05)
DX: E10.65 Type 1 diabetes mellitus with hyperglycemia (principal); I48.91 Unspecified atrial fibrillation; E03.9 Hypothyroidism, unspecified; Z79.4 Long term (current) use of insulin; F32.9 Major depressive disorder, single episode, unspecified; F41.9 Anxiety disorder, unspecified; Z11.59 Encounter for screening for other viral diseases
CPT/HCPCS: 36415; 71045-TC-FY; 80053; 81003; 82010; 82550; 82803; 82962; 83036; 84439; 84443; 84484; 85025; 85610; 85730; 93005; 93010; 99285-25; U0003

== ENCOUNTER 2022-09-22 13:54 | Emergency (ER) | payer OTHER ==
[2022-09-22 14:01] VITALS: BP 135/89; PULSE 107; RESP 18; TEMP 99.3; BMI 37.3
[2022-09-22 17:10] LABS: POTASSIUM 4.5 mmol/L (3.5-5.1)
[2022-09-22 17:12] LABS: CALCIUM 8.8 mg/dL (8.5-10.1)
[2022-09-22 17:13] LABS: ALBUMIN 3.3 g/dl (3.4-5.0); BLOOD UREA NITROGEN 8.8 mg/dL (7-18)
[2022-09-22 17:16] LABS: CREATININE 0.7 mg/dL (0.55-1.3)
[2022-09-22 17:18] LABS: BILIRUBIN,TOTAL 0.5 mg/dL (0.2-1)
[2022-09-22 17:21] LABS: EPI CELLS 10 /uL (0-25.1); HYALINE CASTS 3 /uL (0-3.1); PH,URINE 5.5 (5.0-8.0); URINE APPEARANCE CLOUDY; URINE BACTERIA 161 /uL (0-1359); URINE BILIRUBIN NEGATIVE (NEGATIVE); URINE COLOR YELLOW; URINE GLUCOSE (UA) 3+ (NEGATIVE); URINE KETONE 4+ (NEGATIVE); URINE LEUK ESTERASE 1+ (NEGATIVE); URINE NITRITE NEGATIVE (NEGATIVE); URINE PROTEIN TRACE (NEGATIVE); URINE UROBILINOGEN 0.2 mg/dL (0.2-1.0); URINE WBC 576 /uL (0-25.8)
[2022-09-22 17:28] LABS: HCG,QUALITATIVE URINE NEGATIVE
[2022-09-22 17:51] LABS: URINE RBC 76 /uL (0-23.9)
[2022-09-22] MEDS ORDERED: CEFTRIAXONE 1,000 MG in DEXTROSE 5%-WATER - 50 ML IVPB ONE (18:50)
[2022-09-22 19:06] LABS: BASO % 0.4 % (0-2.0); HEMATOCRIT 37.7 % (32.4-45.2); HEMOGLOBIN 13.1 GM/dL (10.7-15.3); LYMPH % 19.2 % (8-40); MCH 29.1 pg (25.7-33.7); MCHC 34.7 g/dl (32.0-36.0); MEAN CELL VOLUME 83.9 fl (80-96); MONO % 7.6 % (3.8-10.2); NEUT % 70.8 % (42.8-82.8); PLATELET COUNT 240 10^3/uL (134-434); RDW 13.2 % (11.6-15.6); WHITE BLOOD COUNT 10.7 K/mm3 (4.0-10.0)
[2022-09-22] MEDS ORDERED: CEFTRIAXONE 1 GM/50 ML BAG ONE (19:32)
== END 2022-09-22 20:00 | disposition home or self-care (01) ==
LOC: JER 13:54
DX: K92.1 Melena (principal); R10.31 Right lower quadrant pain; R19.7 Diarrhea, unspecified; R11.10 Vomiting, unspecified
CPT/HCPCS: 36415; 74177-TC; 80053; 81003; 84703; 85025; 87077; 87086; 87186; 99285-25; Q9967

== ENCOUNTER 2024-10-24 05:32 | Day surgery (SDC) | payer OTHER ==
[2024-10-21 13:00] VITALS: BMI 30.2
[2024-10-24] MEDS: ceFAZolin SODIUM 1 GM VIAL IVPB ONE
[2024-10-24] MEDS ORDERED: oxyCODONE HCL 5 MG TABLET PO PRN (06:32)
[2024-10-24] MEDS ORDERED: IBUPROFEN 400 MG TABLET (FP) PO PRN (06:32)
[2024-10-24] MEDS ORDERED: ONDANSETRON 4 MG/2 ML VIAL IVPUSH PRN ×2 (06:32→14:24)
[2024-10-24] MEDS ORDERED: ACETAMINOPHEN 325 MG TABLET (FP) PO PRN (06:32)
[2024-10-24] MEDS ORDERED: DEXTROSE 50%-WATER 25 GM/50 ML DISP.SYRIN ONE (13:38)
[2024-10-24] MEDS ORDERED: MIDAZOLAM HCL 2 MG/2 ML SINGLE DOSE VIAL ONE (13:58)
[2024-10-24] MEDS ORDERED: PROPOFOL 20 ML ONE (13:58)
[2024-10-24] MEDS ORDERED: KETOROLAC TROMETHAMINE 30 MG/1 ML VIAL ONE (14:19)
[2024-10-24] MEDS ORDERED: PROMETHAZINE HCL 25 MG/1 ML VIAL IVPB PRN (14:24)
[2024-10-24] MEDS ORDERED: LACTATED RINGERS SOLUTION 1,000 ML IV SCH (14:30)
[2024-10-24] MEDS: ACETAMINOPHEN INJECTION 100 ML ONE (15:24)
[2024-10-24] MEDS: ACETAMINOPHEN 1000 MG/100 ML BAG IVPB ONE (15:24)
[2024-10-24 16:43] VITALS: RESP 16
[2024-10-24 18:01] VITALS: BP 121/76; PULSE 71; TEMP 98.4
== END 2024-10-24 18:14 | disposition home or self-care (01) ==
LOC: JASU-SURG 05:32
PROVIDERS: ATTEND Obstetrics & Gynecology
PROC: 0UB98ZZ Excision of Uterus, Via Natural or Artificial Opening Endoscopic (ICD-10-PCS; principal; 2024-10-24 12:15)
DX: D25.0 Submucous leiomyoma of uterus (principal); N84.0 Polyp of corpus uteri; N85.6 Intrauterine synechiae
CPT/HCPCS: 82962; 86850; 86900; 86901; 88305-TC; 94760